=== PATIENT | female | born 1960 | race Caucasian/White ===

== ENCOUNTER 2023-08-13 08:29 | Outpatient (CLI) | payer MEDICARE, SELFPAY ==
--- NOTE | 2023-08-13 08:46 | ECHO_ITS ---
Patient Info Name: Lacey Joyner Age: 63 years : 1960 Gender: Female Ht: 66 in Wt: 223 lbs BSA: 2.21 m2 HR: 63 bpm BP: 137 / 91 mmHg Technical Quality: Fair Exam Date: 08/13/2023 9:11 AM Exam Location: Echo Lab Patient Status: Outpatient Admit Date: 08/13/2023 Staff Ordering Physician: Kasi Oconnell PA-C Attending Provider: Kasi Oconnell PA-C Referring Physician: Kourtney HECK; Exam Type: CA echo doppler color flow Study Info Indications R60.9 - Edema, unspecified Complete two-dimensional, color flow and Doppler transthoracic echocardiogram is performed. Summary 1. Complete two-dimensional, color flow and Doppler transthoracic echocardiogram is performed. 2. Left ventricular chamber dimension is normal. 3. Left ventricular systolic function is normal, estimated at 60-65%. 4. The left ventricular diastolic function is abnormal. 5. E/e' 11 is mildly elevated. 6. Left atrial chamber dimension is mildly enlarged. 7. There is trace mitral valve regurgitation. Left Ventricle E/e' 11 is mildly elevated. Left ventricular chamber dimension is normal. Left ventricular systolic function is normal, estimated at 60-65%. The left ventricular diastolic function is abnormal. Right Ventricle Right ventricular systolic function is normal and with normal TAPSE 2.2 cm. Right ventricular chamber dimension is normal. Left Atria Left atrial chamber dimension is mildly enlarged. Right Atria Right atrial chamber dimension is normal. Aortic Valve The aortic valve is probable trileaflet. There is no aortic valve stenosis. There is no aortic valve regurgitation. Pulmonic Valve There is no pulmonic regurgitation. Mitral Valve There is no mitral valve stenosis. There is trace mitral valve regurgitation. Tricuspid Valve There is no tricuspid valve regurgitation. Pericardium/Pleural There is no pericardial effusion. Inferior Vena Cava Normal inferior vena cava with >50% collapse upon inspiration consistent with normal right atrial pressure, 5 mmHg. Aorta The aortic root size at the sinus of Valsalva is normal. Left Ventricular Outflow Tract Name Value Normal LVOT 2D LVOT Diameter 2.0 cm LVOT Doppler LVOT Peak Gradient 5 mmHg LVOT Mean Gradient 2 mmHg LVOT VTI 23 cm LVOT VTI/AV VTI Ratio 0.6 LVOT Stroke Volume 71 ml LVOT CO 4.7 l/min LVOT CI 2.1 l/min/m2 Pulmonic Valve Name Value Normal PV Doppler PV Peak Gradient 3 mmHg Mitral Valve Name Value Normal MV Doppler
== END 2023-08-13 08:30 | disposition home or self-care (01) ==
PROVIDERS: PCP Physician Assistant; Visit Provider Physician Assistant
DX: R93.1 Abnormal findings on diagnostic imaging of heart and coronary circulation (principal); I34.0 Nonrheumatic mitral (valve) insufficiency; R60.9 Edema, unspecified
CPT/HCPCS: 93306

== ENCOUNTER 2024-10-07 09:41 | Outpatient (CLI) | payer MEDICARE, SELFPAY ==
--- NOTE | ~2024-10-07 | US_ITS ---
EXAMINATION: US_VDOPREFBI_US DATE: 10/07/2024 10:54 INDICATION: Venous insufficiency, chronic, peripheral. TECHNIQUE: Grayscale ultrasound images without and with compression and Doppler ultrasound images of the bilateral lower extremity veins were obtained. COMPARISON: None. FINDINGS: The visualized portions of right common femoral vein, profunda (deep) femoral vein, femoral vein, pop liteal vein, peroneal veins, and posterior tibial veins are patent. Greater saphenous vein measures 3 mm in the upper thigh and 4 mm in the lower thigh and 2 mm in the calf. In greater saphenous vein in the calf, there is 3.7 seconds reflux. Right small saphenous vein measures 3 mm in the upper calf an d 1 mm in the lower calf. The visualized portions of left common femoral vein, profunda femoral vein, femoral vein, popliteal v ein, peroneal veins, and posterior tibial veins are patent. Left greater saphenous vein measures 5 mm in the upper thigh, 2 mm in the lower thigh, and 1 mm in the calf. Left small saphenous vein measure s 2 mm in the upper calf and 2 mm in the lower calf. IMPRESSION: 1. Reflux in right greater saphenous vein. Reviewed, dictated and finalized at location A.
--- OUTSIDE RECORDS SUMMARY | 2024-10-07 10:22 | XMS_ITS | Clinical Summary ---
Author Organization [facility] Address [address] [place] [address] Care Team Providers Care Station Mechanic Apprentice Name Role Phone Vinnie Denson MD Primary Care Provider [phone] Allergies No known active allergies Medications atorvastatin (LIPITOR) 20 mg tablet TK 1 T PO QD 3 01/14/2019 Active lisinopril-hydro CHLOROthiazide (PRINZIDE,ZESTOR ETIC) 10-12.5 mg per tablet TK 1 T PO QD 3 12/24/2018 Activ e acetaminophen (TYLENOL ARTHRITIS ORAL) Take by mouth Active docusate sodium (STOOL SOFTENER ORAL) Take by mouth Active multivitamin capsule Take 1 capsule by mouth daily Active cholecalciferol, vitamin D3, (VITAMIN D3 ORAL) Take by mouth Active aspirin 81 mg enteric coated tablet Take 81 mg by mouth daily Active indomethacin (INDOCIN) 50 mg capsuleIndicatio ns:Acute gout of hand, unspecified cause, unspecified laterality Take 1 capsule (50 mg total) by mouth 3 (three) times a day with meals 30 capsule 06/24/2024 Active Active Problems Problem Noted Date Diagnosed Date Age-related nuclear cataract of both eyes 2021 Menopause 02/02/2019 Encounter for gynecological examination without abnormal finding 02/02/2019 Medical History Medical History Date Comments Hypertension Hypercholesteremia Family History Medical History Relation Name Comments Melanoma Brother Strabismus Brother Lung cancer Father Bone cancer Mother Breast cancer Sister Rectal cancer Sister Cataracts Neg Hx Glaucoma Neg Hx Macular degeneration Neg Hx Retinal detachment Neg Hx Relation Name Status Comments Brother Father Mother Sister Alive (1) Sister dx l ate 40's (2) dx early 60's Social History Tobacco Use Types Packs/Day Years Used Date Smoking Tobacco: Former Smokeless Tobacco: Current Alcohol Use Standard Drinks/Week Comments Yes 0 (1 standard drink = 0.6 oz pur e alcohol) Comments No Sex and Gender Information Value Date Recorded Sex Assigned at Not on file Legal Sex Female 7:24 AM LEAK HUNTER Gender Identity Not on file Sexual Orientation Not on file Obstetrics History Para Term AB IAB SAB Ectopic Multiple Livin g Live Births 0 0 Last Filed Vital Signs Vital Sign Reading Time Taken Comments Blood Pressure 136/78 07/14/2019 2:29 PM LEAK HUNTER Pulse 79 07/14/2019 2:29 PM LEAK HUNTER Temperature 36.6 C (97.9 F) 07/14/2019 2:29 PM LEAK HUNTER Respiratory Rate - - Oxygen Saturation 96% 07/14/2019 2:29 PM LEAK HUNTER Inhaled Oxygen Concentration - - Weight 88.5 kg (195 lb) 12/07/2019 9:43 AM CDT Height 167.6 cm (5' 6 ) 12/07/2019 9:43 AM CDT Body Mass Index 31.47 12/07/2019 9:43 AM CDT Plan of Treatment Health Maintenance Due Date Last Done Comments Colon Cancer Screening-Colonoscopy 1960 Depression Screening 1960 Fall Risk Assessment 1960 Hepatitis C Screening 1960 DTaP/Tdap/Td Vaccine (1 - Tdap) 1970 Hepatitis B Screening 1977 Zoster Vaccine (1 of 2) 2009 Pneumococcal vaccine 65+ (2 of 2 - PCV) 04/04/2019 04/04/2018 Cervical Cancer Screening 02/03/2020 02/02/2019 Osteoporosis Screening-Bone Density Scan 02/04/2021 02/04/2019 Influenza Vaccine (#1) 2024 8, 03/22/2017, 04/06/2016, Additional history exists Well Visit 65+ 2024 02/02/2019 Breast Cancer Screening-Mammogram 04/07/2025 04/07/2024, 01/21/2023, 06/11/2021, Additional history exists Procedures Procedure Name Priority Date/Time Associated Diagnosis Comments SCREENING MAMMOGRAM BILATERAL W HIRA Schedule Routine, Read Routine (OP Routine) 04/07/2024 11:41 AM CDT Screening mammogram, encounter for DEXA AXIAL SKELETON BONE DENSITY 1 OR MORE SITES 02/04/2019 2:01 PM CDT THINPREP PAP WITH HPV Routine 02/02/2019 3:45 PM CDT Encounter for gynecological examination without abnormal finding Menopause from Last 3 Months or Most Recently Relevant to Health Maintenance Results * Screening Mammogram Bilateral W Hira (04/07/2024 11:41 AM CDT) Anatomical Region Laterality Modality Breast Bilateral Mammography Impressions 04/07/2024 12:17 PM CDT BI-RADS ATLAS category (overall): 1 - Negative There is no mammographic evidence of malignancy. A 1 year screening mammogram is recommended. The patient has been or will be contacted. We recommend annual screening mammography for women at average risk of breast cancer beginning at age 40, based on guidelines of the [place] [employer] (ACR Practice Parameter for the Performance of Screening and Diagnostic Mammography) and [place] [employer]. For women with and elevated risk of breast cancer, please refer to the ACR Practice Parameter for specific screening recommendations. The patient will be entered into a reminder system with a target due date of 1 year for her next screening exam. Narrative 04/07/2024 12:17 PM CDT Screening Mammogram Bilateral W Hira: 04/07/24 The study was acquired using full field digital technology and interpreted from soft copy. 2D digital mammographic views, as well as 3D digital tomosynthesis were performed in the CC and MLO projections. CLINICAL: Screening mammogram, encounter for No relevant medical history has been documented for this patient. History of breast cancer in Sister. COMPARISONS: 01/21/2023 Screening Mammogram Bilateral W Hira 06/11/2021 Screening Mammogram Bilateral W Hira 03/01/2018 Screening Mammogram Bilateral W Hira 02/23/2017 MAMMOGRAPHY, TOMOGRAPHY, BILATERAL 04/04/2016 Screening Mammogram 01/01/2015 Screening Mammogram 2D Bilateral BREAST TISSUE: There are scattered areas of fibroglandular density. FINDINGS: There is no new suspicious finding in either breast on mammogram. us Self Screening Mammogram IMG MAMMO PROCEDURES Fi nal Result * Dexa Axial Skeleton Bone Density 1 or 2 Site (02/04/2019 2:01 PM CDT) Anatomical Region Laterality Modality Body N/A Radiographic Colette ging 02/04/2019 2:55 PM CDT Narrative 02/04/2019 2:56 PM CDT Patient Name: LACEY JOYNER Ordering Dr: Anupama Dietrich CNM D.O.B: 1960 Exam Date: 02/04/19 140 Age: 58 Sex: Female MR#: [id number] Loc: [facility]#: [id number] RADIOLOGY REPORT Order #[id number] Bone Density Bone Density Hip/Spine (STD) Signed EXAM DESCRIPTION: Bone Density Hip/Spine (STD) REASON FOR STUDY: 58-year-old post-menopausal female, screening for osteoporosis. Ship/Rec/Doc Control/Model: HoloRocketrip Horizon A (S/N [id number]) CLINICAL INFORMATION: Current height: 66 inches Maximum height: 66 inches Weight: 215 pounds Risk factors: None COMPARISON: None available. FINDINGS: AP LUMBAR SPINE L1-L4: Total BMD is 1.104 g/cm2 T-score is 0.5 LEFT HIP: Total BMD is 0.993 g/cm2 T-score is 0.4 Femoral neck BMD is 0.770 g/cm2 T-score is -0.7 IMPRESSION: Normal bone mineral density by WHO criteria. Bone mineral density: Normal (T-score above or = -1.0) Low bone mass (T-score between -1.0 and -2.5) replaces the previously used term osteopenia Osteoporosis (T-score = or below -2.5) Medical evaluation for secondary causes of low bone mineral density may be appropriate. FRAX is a World Health Organization validated fracture risk assessment tool that calculates a person's 10 year probability of a major osteoporosis related fracture and hip fracture. According to the National Osteoporosis Foundation guidelines, postmenopausal women and men age 50 or older with low bone mass and a 10 year probability of a major osteoporosis related fracture = or greater than 20% or a 10 year probability of a hip fracture = or greater than 3% should be considered for treatment. For further information, including treatment recommendations, please refer to the 2013 ISCD Official Positions (http://www.iscd.org) and the NOF's Clinician's Guide to Prevention and Treatment of Osteoporosis (http://www.nof.org/professionals/clinical-guidelines) THIS IS AN ELECTRONICALLY VERIFIED FINAL REPORT 02/04/2019 2:56 PM - Electronically signed by Qasim Collins M.D. AB: Report ID: [id number] Reading Location: [place] [address] REPORT ELECTRONICALLY SIGNED IN OTHER VENDOR SYSTEM Resulting Agency Comment O Procedure Note Qasim Collins MD - 02/04/2019 Patient Name: ANGELLALACEY Dr: Anupama Dietrich CNM D.O.B: 1960 Exam Date: 02/04/19 1401 Age: 58 Sex: Female MR#: [id number] Loc: RADIOLOGY REPORT Order #[id number] Bone Density Bone Density Hip/Spine (STD) Signed EXAM DESCRIPTION: Bone Density Hip/Spine (STD) REASON FOR STUDY: 58-year-old post-menopausal female, screening for osteoporosis. Ship/Rec/Doc Control/Model: HoloRocketrip Horizon A (S/N [id number]) CLINICAL INFORMATION: Current height: 66 inches Maximum height: 66 inches Weight: 215 pounds Risk factors: None COMPARISON: None available. FINDINGS: AP LUMBAR SPINE L1-L4: Total BMD is 1.104 g/cm2 T-score is 0.5 LEFT HIP: Total BMD is 0.993 g/cm2 T-score is 0.4 Femoral neck BMD is 0.770 g/cm2 T-score is -0.7 IMPRESSION: Normal bone mineral density by WHO criteria. Bone mineral density: Normal (T-score above or = -1.0) Low bone mass (T-score between -1.0 and -2.5) replaces thepreviously used term osteopenia Osteoporosis (T-score = or below -2.5) Medical evaluation for secondary causes of low bone mineral density maybe appropriate. FRAX is a World Health Organization validated fracture risk assessmenttool that calculates a person's 10 year probability of a major osteoporosisrelated fracture and hip fracture. According to the National OsteoporosisFoundation guidelines, postmenopausal women and men age 50 or older with low bonemass and a 10 year probability of a major osteoporosis related fracture = or greater than 20% or a 10 year probability of a hip fracture = or greaterthan 3% should be considered for treatment. For further information, including treatment recommendations, pleaserefer to the 2013 ISCD Official Positions (http://www.iscd.org) and the NOF's Clinician's Guide to Prevention and Treatment of Osteoporosis (http://www.nof.org/professionals/clinical-guidelines) THIS IS AN ELECTRONICALLY VERIFIED FINAL REPORT 02/04/2019 2:56 PM - Electronically signed by Qasim Collins M.D. AB: Report ID: [id number] Reading Location: [place] [address] REPORT ELECTRONICALLY SIGNED IN OTHER VENDOR SYSTEM Anupama Dietrich CN IM DXA PROCEDURES Joselyn l Result * ThinPrep Pap with HPV (02/02/2019 3:45 PM CDT) 02/02/2019 3:45 PM CDT 02/03/2019 11:35 AM CDT [facility] - 02/07/2019 11:19 AM CDT [facility] Department of Pathology [address] [place] [id number] Final Report with Addendum Patient Name: LACEY JOYNER Address: [address] [place] [address] Gender: F : 1960 (Age: 58) Service: Laboratory Location: Lab [facility] #: [id number] Patient Type: Ref Lab Taken: 02/02/2019 Received: 02/03/2019 Accessioned:: 02/04/2019 Reported: 02/07/2019 Physician(s): Anupama Dietrich [facility] Diagnosis: Source of Specimen: SCREENING IMAGED PAP w/ HPV Specimen Adequacy: - Satisfactory for evaluation; endocervical/transformation zone component present General Category: - Negative for intraepithelial lesion or malignancy RAIZA Prater(ASCP) Report Electronically Reviewed and Signed Out By RAIZA Prater(ASCP) 02/07/2019 11:19:52 Addenda: HPV RNA Test Interpretation NEGATIVE for types 16, 18, 31, 33, 35, 39, 45, 51, 52, 56, 58, 59, 66 and 68. Test performed utilizing Gen-Mingleverse Aptima assay. RAIZA Prater(ASCP) Report Electronically Reviewed and Signed Out By RAIZA Prater(ASC) 02/07/2019 10:02:02 Specimen(s) Received: A: SCREENING IMAGED PAP w/ HPV Clinical History: Menstrual History: Post-menopausal The Pap test is a screening test used to aid in the detection of cervical cancer and its precursors. It should not be the sole means by which malignant and premalignant lesions are diagnosed. Both false negative and false positive results may occur. It also has poor sensitivity for the detection of endometrial lesions and should not be used to evaluate suspected endometrial abnormalities. For these reasons it is most important to obtain Pap tests at regular intervals. The performance characteristics of some immunohistochemical stains, fluorescence in-situ hybridization tests and immunophenotyping by flow cytometry cited in this report (if any) were determined by the Surgical Pathology Department at [facility] as part of an ongoing quality measurement specialist program and in compliance with federally mandated regulations drawn from the Clinical Laboratory Improvement Act of 1988 (CLIA '88). Some of these tests rely on the use of analyte specific reagents and are subject to specific labeling requirements by the US Food and Drug Administration. Such diagnostic tests may only be performed in a facility that is certified by the Department of Health and Human Services as a high complexity laboratory under CLIA '88. The FDA has determined that such clearance or approval is not necessary. This test is used for clinical purposes. It should not be regarded as investigational or for research. Nevertheless, federal rules concerning the medical use of analyte specific reagents require that the following disclaimer be attached to the report: This test was developed and [facility] performance characteristics [facility]. It has not been cleared or approved by the U. S. Food and Drug Administration. Anupama Dietrich CN LAB CYTOLOGY [place] [address], [facility] [phone] from Last 3 Months or Most Recently Relevant to Health Maintenance Insurance MEDICARE [facility] Address: [address] [address] [place] [address] COMMERCIAL GENERIC MEDICARE COMMERCIAL GENERIC [id number] MEDICARE COMMERCIAL GENERIC [place] [id number] [facility] Care Teams Station Mechanic Apprentice Relationship Specialty Start Date End Date Vinnie Denson MD [address] [facility] [address] [place] [address] PCP - General 02/20/20
--- OUTSIDE RECORDS SUMMARY | 2024-10-07 10:22 | XMS_ITS | Clinical Summary ---
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 Gender Identity Not on file Sexual Orientation Not on file Plan of Treatment Health Maintenance Due Date Last Done Comments DEXA Bone Density 1960 Hepatitis C Virus (HCV) Screening 1960 TdaP Immunization 1960 Pap Smear 1980 Cervical Cancer Screening (CCS) 1989 HPV/Cotest 1989 Colonoscopy 2004 Colorectal Cancer Screening 2004 Cologuard 2009 Immunochemical Fecal Occult Blood 2009 Mammogram 2009 Pneumococcal Immunization (50+ years) (2 of 2 - PCV) 04/04/2019 04/04/2018 Influenza Immunization (#1) 03/13/202402/12, 04/04/2018, 03/22/2017, Additional history exists SARS-COV-2 Immunization ( season) 2024 06/20/2021, 10/26/2020, 09/14/2020 Respiratory Syncytial Virus (RSV) Immunization (Adult) (1 - 1-dose 75+ series) 2034 Pneumococcal Immunization Combined Discontinued 04/04/2018 Zoster Immunization Completed 05/16/2020, 0 Hepatitis B Immunization Aged Out No longer eligible based on patient's age to complete this topic Meningococcal Immunization (ACWY) Aged Out No longer eligible based on patient's age to complete this topic Rotavirus Immunization Aged Out No lo nger eligible based on patient's age to complete this topic
--- OUTSIDE RECORDS SUMMARY | 2024-10-07 10:22 | XMS_ITS | Clinical Summary ---
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 Name Role Phone Unavailable Primary Care Provider Unavailabl e Social History Tobacco Use Types Packs/Day Years Used Date Smoking Tobacco: Never Assessed Comments Unknown Sex and Gender Information Value Date Recorded Sex Assigned at Not on file Legal Sex Female 7:18 PM CDT Gender Identity Not on file Sexual Orientation Not on file Plan of Treatment Health Maintenance Due Date Last Done Comments Colorectal Cancer Screening Colonoscopy (10 Years) 1959 Hepatitis C 1977 DTaP, Tdap and Td Vaccines ( 1 - Tdap) 1978 Mammogram Screening 1999 Zoster Vaccines (1 of 2) 2009 COVID-19 Vaccine ( - 2023-2 5 season) 2024 Dexa Scan (General) 2024 Pneumococcal Vaccine: 65+ Ye ars (1 of 1 - PCV) 2024 Influenza Adult (#1) 2024 RSV Immunization or 60+ Years (1 - 1-dose 75+ series) 2034 Meningococcal B Vaccine Aged Out No l onger eligible based on patient's age to complete this topic Meningococcal Vaccine Aged Out No kristie sharon eligible based on patient's age to complete this topic Pneumococcal Vaccine: Pediat rics (0 to 5 Years) and At-Risk Patients (6 to 64 Years) Aged Out No longer eligible b ased on patient's age to complete this topic RSV Immunizations Under 20 Months Aged Out No longer eligible based on patient's age to complete this topic
--- OUTSIDE RECORDS SUMMARY | 2024-10-07 10:22 | XMS_ITS | Clinical Summary ---
Author Organization [facility] Address [address] [address] Care Team Providers Care Record Pressman Name Role Phone Unavailable Primary Care Provider Unavailabl e Source Comments [facility],non-owned Affiliates and Associated Physician Practices is amultiple site organization consisting of ambulatory clinics and hospital sitesin [place], [place], [place] and [place]. This disclosure is being madepursuant to the Care Everywhere program and may not contain all information available regarding this patient. Last updated 18.[facility] [employer] Social History Tobacco Use Types Packs/Day Years Used Date Smoking Tobacco: Never Assessed Sex and Gender Information Value Date Recorded Sex Assigned at Not on file Gender Identity Not on file Sexual Orientation Not on file Plan of Treatment Health Maintenance Due Date Last Done Comments BONE DENSITY TESTING 1960 COLOGUARD (AGES 45-75) - COL ON CA SCREENING 1960 COLON MONITORING 1960 COLONOSCOPY - COLON CA SCREENING 1959 CT COLONOGRAPHY - COLON CA SCREENING 1960 Colorectal Cancer Screening 1960 FIT - COLON CA SCREENING 1960 FLEX SIG - COLON CA SCREENING 1960 LIPID TESTING 1960 MAMMOGRAM 1960 MEDICARE AWV 12 MONTHS 1960 PAP SMEAR 1959 HIV SCREENING 1974 HEPATITIS C SCREENING 03/25/1977 DTAP/TDAP/TD VACCINES (1 - Tdap) 1978 PNEUMOCOCCAL VACCINE 50+ (1 of 1 - PCV) 2009 ZOSTER VACCINE (1 of 2) 2009 COVID-19 VACCINE ( - 2023-2 5 season) 2024 INFLUENZA VACCINE (#1) 2024 DEPRESSION SCREENING 07/13/2024 Respiratory Syncytial Virus (RSV) Vaccine Pt: or over 60 yrs (1 - 1-dose 75+ series) 2034 HEPATITIS B VACCINE Aged Out No longe r eligible based on patient's age to complete this topic HIB VACCINE Aged Out No longer eligi ble based on patient's age to complete this topic HPV VACCINE Aged Out No longer eligi ble based on patient's age to complete this topic MENINGOCOCCAL (Group B) VACC INE SHARED DECISION-MAKING Aged Out No longer eligibl e based on patient's age to complete this topic MENINGOCOCCAL GROUPS A/C/Y/W VACCINE Aged Out No longer eligible b ased on patient's age to complete this topic
--- OUTSIDE RECORDS SUMMARY | 2024-10-07 10:22 | XMS_ITS | Encounter Summary ---
Author Organization [facility] Address [address] [place], [place] [address] [address] Care Team Providers Care Supervisor Lead [employer]inery Name Role Phone Unavailable Primary Care Provider Unavailabl e Encounter Details Date Type Department Care Team (Late st Contact Info) Description 05/01/2022 Lab Requisition [facility] [address] [place] [id number] Savage Chen MD [address] [place] [address] Social History Tobacco Use Types Packs/Day Years Used Date Smoking Tobacco: Never Assessed Sex and Gender Information Value Date Recorded Sex Assigned at Not on file Gender Identity Not on file Sexual Orientation Not on file documented as of this encounter Plan of Treatment Not on file documented as of this encounter Procedures Procedure Name Priority Date/Time Associated Diagnosis Comments DERMATOPATHOLOGY Routine 05/01/2022 12:0 0 AM CDT documented in this encounter Results * DERMATOPATHOLOGY (05/01/2022 12:00 AM CDT) Case Report Dermatopathology Report Case: [id number] Authorizing Provider: Savage Chen MD Collected: 05/01/2022 12:00 AM Ordering Location: [facility] Received: 05/01/2022 05:37 PM Pathologist: Nancy Ryan MD Specimen: Skin, left breast 12:50 PM CDT DERMATOPATHOLOGY LABORATORY Final Diagnosis Specimen A. 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 The specimen consists of a shave biopsy measuring [id number]. Jar 0. 12:50 PM CDT DERMATOPATHOLOGY LABORATORY Microscopic Description Specimen A. SKIN, left breast: The epidermis is mildly acanthotic. There is a lichenoid infiltrate with vacuolar changes of basilar keratinocytes and scattered necrotic keratinocytes. Sections show acantholysis, dyskeratosis, and an inflammatory cell infiltrate. COMMENT: In the correct clinical setting the acantholytic dyskeratosis can be seen in transient acantholytic dermatosis (Ft Mitchell's disease). 12:50 PM CDT DERMATOPATHOLOGY LABORATORY Disclaimer An external and internal positive and negative controls are appropriate for the histochemical, immunohistochemical and immunofluorescence stain(s) in this case (if any), except where stated explicitly. The performance characteristics of the stain(s) cited in this report were developed and its performance characteristic determined by the Dermatopathology Laboratory at [facility], directed by Dr. Shania Tsang. These tests need not be, and therefore are not, approved by the [place] Food and Drug Administration. The tests are used for clinical purposes. Billing Codes Specimen Charges Stain Charges 29167 1 12:50 PM CDT DERMATOPATHOLOGY LABORATORY Embedded Images 12:50 PM CDT DERMATOPATHOLOGY LABORATORY Pathology/Cytolog y TISSUE SPECIMEN FROM SKIN / Unknown 05/01/2022 05/01/2022 5:37 PM CDT Savage Chen MD LAB - PATHOLOGY/CYTO LOGY ORDERABLES DERMATOPATHOLOGY LABORATORY [facility] - Department of Dermatology [address] [place] [address], [facility] [phone] documented in this encounter Visit Diagnoses Not on filedocumented in this encounter
--- OUTSIDE RECORDS SUMMARY | 2024-10-07 10:22 | XMS_ITS | Data Portability ---
Author Organization 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 Patient will come back in a year unless there are new symptoms. [email or web address] Not available 04/21/2024 12:24:14 Plan of Treatment Reminders Order Date Submit Date Provider Last Modified By Organization Details Last Modified Time Details Appointments None recorded . Lab urinalys is, dipstick 2021 022 [facility], [address], [address], [place], [address], 11:23:55 Referral urologis t referral - Overacti ve bladderP lease contact this patient to schedule an appointm entAttac hed are the patients demograp hics, most recent office visit notes and labs results. If you have any question s, please contact me at [phone].Th ank you,Min da, Referral 's 2021 022 NESTOR Collins MD, [address], [place], [address], 3 05:01:33 Procedures None recorded . Surgeries None recorded . Imaging None recorded . Medication Orders fluconaz ole 150 mg tablet 2023 024 NESTOR [facility] #[id number], [address], [place], [place], [id number], 4 15:41:54 Macrobid 100 mg capsule 2021 [email or web address] [facility] #[id number], [address], [place], [place], [id number], 10:43:56 Patient TargetsNo targets recorded. Patient InstructionsNo instructions recorded. Reason for Referral Urologist Referral for Overa ctive urinary bladder Overactive bladder Overactive bladderPlease contact this patient to schedule an appointmentAttached are the patients demographics, most recent office visit notes and labs results.If you have any questions, please contact me at [phone].Thank you,Zari Referral's Referring Physician: Ana Maria Ding TAIL DOGGER, Encounter Date: 02/19/2022 Results Created Date Observation Date Name Description Value Unit Range Abnormal Flag Note LastModifiedBy Organization Detail LastModifiedTime 02/12/2002/11/2022 CULTU RE: URINE result report SEE RESULT S BELOW Test: Cultu re: Urine Speci men Sourc e: Urine Voide d Speci men Type: Urine Speci men Date: 11:20 AM Resul t Date: 8:56 PM Resul t Statu s: Final resul t Abnor mal: No Resul ting Lab: [facility] [address] [facility] [address] Tel: CULTU RE ----- ----- ----- --- No growt h in 1 day (dete ction level of 10,00 0 colon ies / ml.) Not Available [facility] [address] [place], [address], 02/12/2022 21:59:13 02/12/20 22 02/11/2022 urina lysis , dipst ick Leukocytes tr Not Available [facility] [address], [place], [address], 02/11/2022 11:16:42 02/12/20 22 02/11/2022 urina lysis , dipst ick Nitrite neg Not Available [facility] [address], [place], [address], 02/11/2022 11:16:42 02/12/20 22 02/11/2022 urina lysis , dipst ick Urobilinogen neg Not Available [facility] kat [address], [place], [address], 02/11/2022 11:16:42 02/12/20 22 02/11/2022 urina lysis , dipst ick Protein neg Not Available [facility] [address], [place], [address], 02/11/2022 11:16:42 02/12/20 22 02/11/2022 urina lysis , dipst ick pH 7 Not Available [facility] [address], [place], [address], 02/11/2022 11:16:42 02/12/20 22 02/11/2022 urina lysis , dipst ick Specific Browning 1.005 Not Available [facility] [address], [place], [address], 02/11/2022 11:16:42 02/12/20 22 02/11/2022 urina lysis , dipst ick Ketone neg Not Available [facility] [address], [place], [address], 02/11/2022 11:16:42 02/12/20 22 02/11/2022 urina lysis , dipst ick Bilirubin neg Not Available [facility] yasir [address], [place], [address], 02/11/2022 11:16:42 02/12/20 22 02/11/2022 urina lysis , dipst ick Glucose neg Not Available [facility] [address], [place], [address], 02/11/2022 11:16:42 02/12/20 22 02/11/2022 urina lysis , dipst ick Appearance clear Not Available [facility] venkat [address], [place], [address], 02/11/2022 11:16:42 02/12/20 22 02/11/2022 urina lysis , dipst ick Color yellow Not Available [facility] [address], [place], [address], 02/11/2022 11:16:42 02/20/20 22 02/19/2022 IMAGE GUIDE D PAP AND HPV REGAR DLESS image guided Pap, HPV regardless of Pap result SEE RESULT S BELOW CASE REPOR T: Cytol ogy Gynec ologi carlos Repor t Case: [id number] Autho riuma g Provi sanjay: Ana Maria Ding, BERNY Colle cted: 02/19 1157 Order ing Locat ion: [place] [facility] Recei becca: 02/20 0108 First Scree n: Heber shelley, Dante ramírez, CT Speci men: Scree liz Pap - Image d, Cervi x STATE MENT OF ADEQU ACY: Satis facto ry for evalu ation Trans forma tion zone compo nent prese nt FINAL DIAGN OSIS: Negat cristopher for Intra epith elial Lesio n or Laura irwin (NIL) . Elect emma saavedra jm d by Dante Baltazar, CT on 2021 at 1:46 PM ----- ----- ----- ----- ----- ----- ----- ----- ----- ----- ----- ----- ----- ----- ----- ----- ----- ---- HPV RESUL TS: HPV mRNA E6/E7 : No HPV mRNA Detec andrés NOTE: This high risk HPV mRNA assay detec ts fourt een high- risk HPV types (16, 18, 31, 33, 35, 39, 45, 51, 52, 56, 58, 59, 66, 68) witho ut diffe renti ation . COMME NT: Note: This speci men was revie wed by a Cytot echno logis t and/o r Patho logis t (as indic ated in this repor t) after evalu ation using the Thinp rep Imagi ng Syste m. CLINI CARLOS INFOR MATIO N: Menst rual Statu s: LMP (if appli cable ): Clini carlos Histo ry/Pr eviou s Pap: Type of Neopl melvina (if appli cable ): Signi fican t Clini carlos Findi ngs: Other Histo ry: Hormo lyndsey (if appli cable ): PAP EDUCA JANEY L NOTE: The Pap Test is a scree liz test with an inher ent false negat cristopher rate. Liqui d-bas ed sampl ing may decre ase, but will not elimi ruth, false negat cristopher resul ts. A negat cristopher resul t does not precl ude the prese nce and/o r devel opmen t of disea se, since the prese nce of abnor mal cells in the sampl e depen ds on the locat ion of the lesio n and sampl ing techn ique. Chen nued regul ar scree liz is the best metho d of cance r preve ntion . If repor andrés cytol ogic findi ng do not corre late with physi carlos and/o r histo rical findi ngs, furth er inves tigat ion is recom jos d, as clinnubia guerra nted. Not Available [facility] [address] [place], [address], 02/24/2022 14:49:12 Result Notes None recorded. Problems Name Problem SNOMED Code Status Onset Date Resolution Date Notes Provider Name and Address Organization Details Recorded Time Adult health examinati on Active 2014 ROUTINE MEDICAL EXAM;Recor ded Elsewhere: No Locatio n: [facility] rce: EHR Chroni c: N Practice ID: 0001 Billa ble Time: 10:30:00 AM Not Available [facility] 0 16:02:55 Specializ ed medical examinati on Active 2014 Gynecologi carlos Examinatio n;Recorded Elsewhere: No Locatio n: [facility] rce: EHR Chroni c: N Practice ID: 0001 Billa ble Time: 10:30:00 AM Not Available [facility] 0 16:02:55 Menopausa l symptom 67886171 Active 2013 Menopausal or female climacteri c states;Rec orded Elsewhere: No Locatio n: [facility] rce: EHR Chroni c: N Practice ID: 0001 Billa ble Time: 01:00:00 PM Not Available [facility] 0 16:02:55 Screening for malignant neoplasm of cervix Active 2013 Screening for malignant neoplasms of the cervix;Rec orded Elsewhere: No Locatio n: [facility] rce: EHR Chroni c: N Practice ID: 0001 Billa ble Time: 01:00:00 PM Not Available [facility] 0 16:02:55 Screening for malignant neoplasm of rectum Active 2013 Screening for malignant neoplasms of the rectum;Rec orded Elsewhere: No Locatio n: [facility] rce: EHR Chroni c: N Practice ID: 0001 Billa ble Time: 01:00:00 PM Not Available [facility] 0 16:02:55 Female genital organ symptoms 823161771 Active 2010 Unspecifie d symptom associated with female genital organs;Pra ctice ID: 0001 Not Available [facility] 0 16:02:55 Breast lump 96134632 Active 2010 Lump or mass in breast;Pra ctice ID: 0001 Not Available [facility] 0 16:02:55 Cyst of ovary 89450477 Active 2010 OVARIAN CYST;Pract ice ID: 0001 Not Available [facility] 0 16:02:55 Problem Notes None recorded. Procedures Surgical History Date Name Laterality Status Provider Name and Address Organization Details Recorded Time 05/06/2024 Date of Last Pap Smear completed Deanna Mendoza [facility] 05/17/2024 15:54:36 Imaging Results None recorded. Procedure Notes None recorded. Medical Equipment None Reported. Allergies No known drug allergies Medications Name Sig Start Date Stop Date Status Note LastModified by Organization Details LastModified Time doxycycli ne hyclate 100 mg capsule TAKE 1 CAPSULE BY MOUTH EVERY 12 HOURS FOR 10 DAYS 02/11 completed Not Available Not Available Not Available atorvasta tin 20 mg tablet TAKE 1 TABLET BY MOUTH DAILY active Not Available Not Available No t Available trazodone 50 mg tablet TAKE 1 TABLET BY MOUTH EVERY DAY AT BEDTIME active Not Available Not Available No t Available nystatin 100,000 unit/gram topical ointment APPLY TO THE AFFECTED AREA(S) BY TOPICAL ROUTE 2 TIMES PER DAY active Not Available Not Available No t Available fluconazo le 150 mg tablet TAKE 1 TABLET BY MOUTH ONCE active Not Available Not Available No t Available minocycli ne 100 mg capsule TAKE 1 CAPSULE BY MOUTH TWICE DAILY FOR 14 DAYS 05/06 completed Not Available Not Available Not Available betametha sone, augmented 0.05 % topical cream APPLY TOPICALL Y TO THE AFFECTED AREA TWICE DAILY UNTIL GONE. RUB IN WELL 02/11 completed Not Available Not Available Not Available ofloxacin 0.3 % ear drops APPLY 2 DROPS IN AFFECTED EAR(S) FOUR TIMES DAILY FOR 5 DAYS 05/06 completed Not Available Not Available Not Available alprazola m 0.25 mg tablet TAKE 1 TABLET BY MOUTH DAILY NEEDED FOR ANXIETY active Not Available Not Available No t Available benzonata te 100 mg capsule TAKE 1 CAPSULE BY MOUTH EVERY 8 HOURS NEEDED FOR COUGH 02/11 completed Not Available Not Available Not Available triamcino lone acetonide 0.1 % topical ointment APPLY THIN LAYER TOPICALL Y TO THE AFFECTED AREA TWICE DAILY active Not Available Not Available No t Available Neurontin 100 mg capsule take 3 capsule (300MG) by oral route 3 times every day 01/15 completed Prescrib ed Elsewher e: No Locat ion: [facility] odify By: cmedical Encount er DateTime : 11/01/19 14 01:00:00 PM Not Available Not Available Not Available nystatin- triamcino lone 100,000 unit/g-0. 1 % topical cream APPLY TO THE AFFECTED AREA TWICE DAILY(IN THE MORNING AND EVENING) FOR 2 WEEKS, THEN EVERY OTHER DAY FOR 2 WEEKS active Not Available Not Available No t Available mupirocin 2 % topical ointment APPLY TOPICALL Y TO THE AFFECTED AREA TWICE DAILY active Not Available Not Available No t Available lisinopri l 10 mg-hydroc hlorothia zide 12.5 mg tablet TAKE 1 TABLET BY MOUTH DAILY active Not Available Not Available No t Available ketoconaz ole 2 % topical cream APPLY TOPICALL Y TO THE AFFECTED AREA TWICE DAILY. RUB IN WELL active Not Available Not Available No t Available cefdinir 300 mg capsule TAKE 1 CAPSULE BY MOUTH EVERY 12 HOURS active Not Available Not Available No t Available lisinopri l 2.5 mg tablet take 1 tablet by oral route every day 02/11 completed Prescrib ed Elsewher e: Yes Loca tion: [facility] odify By: [email or web address] trick En counter DateTime : 11/01/19 14 01:00:00 PM Not Available Not Available Not Available nitrofura ntoin monohydra te/macroc rystals 100 mg capsule TAKE 1 CAPSULE BY MOUTH EVERY 12 HOURS FOR 5 DAYS 02/19 completed Not Available Not Available Not Available Contrave 8 mg-90 mg tablet,ex tended release TAKE 1 TABLET BY MOUTH DAILY active Not Available Not Available No t Available ID NOW COVID-19 Test Kit TEST DIRECTED 02/11 completed Not Available Not Available Not Available Paxlovid 300 mg (150 mg x 2)-100 mg tablets in a dose pack TK 2 NIRMATRE LVIR TS AND 1 RITONAVI R T TOGETHER PO TWICE DAILY active Not Available Not Available No t Available Vitals Date Recorded Body height Body mass index (BMI) Body weight Systolic blood pressure Diastolic blood pressure Provider Name and Address Organization Details Last Updated DateTime 02/11/2022 167.64 cm 36 kg/m2 877736.8 2 g 134 mm[Hg] 81 mm[Hg] Pita Sanchez [place] - [facility] 2 11:07:04 Date Recorded Body height Body mass index (BMI) Body weight Systolic blood pressure Diastolic blood pressure Provider Name and Address Organization Details Last Updated DateTime 02/19/2022 167.64 cm 35.7 kg/m2 501646.6 3 g 128 mm[Hg] 82 mm[Hg] Pita Daniel [facility] 2 10:43:50 Date Recorded Body height Body mass index (BMI) Body weight Systolic blood pressure Diastolic blood pressure Provider Name and Address Organization Details Last Updated DateTime 05/06/2024 167.64 cm 35.7 kg/m2 474794.9 1 g 127 mm[Hg] 81 mm[Hg] Deanna Reji [facility] 4 15:10:00 Social History Question Answer Notes LastModified by [employer] ion Details LastModified Time Tobacco Smoking Status Never Smoker Pita Daniel [facility] 02/11/2022 11:09:28 What Is Your Level Of Alcohol Consumption? Occasional Information not available 02/11/2022 Are You Blind Or Do You Have Difficulty Seeing? No Information n ot available 02/11/2022 In The 14 Days Before Symptom Onset, Have You Had Close Contact With A Laboratory-confirm ed COVID-19 While That Case Was Ill? No [email or web address] Information n ot available 05/06/2024 In The 14 Days Before Symptom Onset, Have You Had Close Contact With A Person Who Is Under Investigation For COVID-19 While That Person Was Ill? No [email or web address] Information not available 05/06/2024 Have You Been To An Area Known To Be High Risk For COVID-19? No [email or web address] Information not available 05/06/2024 Are You Deaf Or Do You Have Serious Difficulty Hearing? No Information not available 02/11/2022 What Type Of Diet Are You Following? REGULAR Information n ot available 02/11/2022 Sex: Unknown Functional Status Question Answer Note LastModified by Organizat ion Details LastModified Time Do you have difficulty walking or climbing stairs? No Information not available 02/11/2022 Are you able to walk? YESWOREST Information not available 02/11/2022 Are you able to care for yourself? Yes Information not available 02/11/2022 Do you have difficulty dressing or bathing? No Information not available 02/11/2022 What is your exercise level? Occasional Information not available 02/11/2022 Mental Status None recorded. Family History Relationship Description Onset Age of this Age Resolved Age Notes LastModified by Organization Details LastModified Time Sister Malignant tumor of breast [email or web address] Not available 08/2021 11:08:46 Mother Malignant tumor of lung [email or web address] Not available 08/2021 11:08:58 Medical History Condition Response Other N Blood Transfusion N Dermatologic Disorders N Gestational Diabetes N Anxiety Disorder N Autoimmune disease N Arthritis N Polyps N Infertility N Acid Reflux (GERD) N Cancer N Varicosities N Stroke N Neurologic/Epilepsy N Fibromyalgia N Headaches N Kidney Disease N Heart Problems N Kidney or Bladder Problems N Eating Disorder N Art (IVF or FET) N Hepatitis/Liver Disease N No Past Medical History N Urinary Tract Infection N Asthma N Trauma/Violence N Thrombophilias N Allergies (Food, seasonal, environmental ) N Breast Cancer N Drug/Latex Allergies/Reactions N Lung Disease N Defects or Inherited Disease N Breast Problem N Hematologic disorders N Anesthesia Complications N History of STI N Deep Vein Thrombosis N Polycystic ovary syndrome N History of abnormal pap N Endometriosis N High Cholesterol Y Thyroid Problems N GI Problems N Anemia N Psychiatric Illness N Ovarian Cancer N Diabetes N Pulmonary (TB, Asthma) N Eczema N Abuse/Domestic Violence N Depression/ depression N Heart Disease N Pre-Eclampsia N Hypertension Y Osteoporosis N Gynecological History Statement/Question Response STIs/STDs N HPV Vaccine N Date of Last Pap Smear 05/06/2024 Sexual Problems? N Current Control Method Menopause LMP Unknown Sexually Active? Y Obstetrics History GPAL:G 0 P 0 0 0 0 Past Encounters Encounter ID Performer Location Encounter Start Date Encounter Closed Date Diagnosis/Indication Diagnosis SNOMED-CT Code Diagnosis ICD10 Code Diagnosis Note [id number] NAT uL [facility] [address] [address] 02/11/2022 10:36:18 02/11/2022 11:32:17 Increased frequency of urination 964573752 R35.0 Urinary symptoms 0106552 08 R39.9 UA today with only trace leuksGiven patients symptoms of burning with urination and frequency, patient opts to start UTI treatment now.Cultur e sentIncrea se water intake, avoid caffeine, sodas, carbonatio n, spicy foodsR/B of medication discussed and accepted. Patient states no allergiesR TC for WWE as she is due To call the office /ED visit with any worsening symptoms, flank pains, fevers, etc Time spent in visit is a total of 25 mins with at least 50% of visit consisting of counseling and review of plan of care. [id number] NAT Lu [facility] [address] [address] 02/19/2022 10:24:24 02/19/2022 12:03:06 Gynecologic examination 99708178 Z01.419 Take Calcium with Vitamin D 12-1500mg daily. Do monthly self breast exams. It is advised to get annual flu shot in the fall and she could obtain at [facility] or [facility] care clinic. If you haven't received the Tdap vaccine in the last 10 years you should obtain one as well. Have mammogram yearly, bone density every 2-3 years and colonoscop y every 5-10 years depending on findings and history. Engage in daily exercise of low impact aerobic exercise 45-60 minutes 4-5 times weekly. Avoid tobacco and illicit drugs as well as using moderation with alcohol intake less than 1-2 8 oz beverages daily. This lifestyle behavior pattern will lead to less health conditions and longer life span. If BMI greater than 25 weight watchers or dietary consult advised. Questions have been answered. Patient appears to understand instructio ns, but if you have any further questions call or respond to this email WWShelbie hx of abnormal paps per patientLas t pap 2016Pap done todaySexua lly active with monogamous partnerInc reased urinary frequency, declines incontinen ce issues - recently had a negative culture - no burning, pains, or irritation . She drinks 2 cups of coffee daily, diet coke, and tea. We discussed caffeine as a bladder stimulant and decreasing caffeine intake can help with urinary frequency. She is also on lisinopril with hydrochlor othiazide, we discussed this can cause urinary frequency as well.Her sees Dr. Collins, urology, for OAB. She request consult, referral sentTo use crisco twice daily to vulva for vaginal moisturize r, to use this as lubricatio n with intercours eSister with breast cancer, unknown genetic testing. We discussed genetic testing, she is unsure if she would like to proceed. Handout given to patient, she will consider.S he declined breast exam today, has anxiety when breast are touched by others. She checks her breast daily. Last mammogram in September.I offered patient breast specialist consult given family hx, declined at this timeUTD with Colonoscop yUTD with PCPRTC in 1 year for WWE or sooner if needed Overactive urinary bladder [id number] N32.81 Family his tory of breast cancer 644488377 Z80.3 [id number] SAY PABLO MD [facility] [address] [address] 05/06/2024 14:45:24 05/06/2024 15:45:07 Gynecologic examination 78906194 Z01.419 Well woman care- Cervical cancer screening: Pap smear obtained today, will follow up on the results with the patient as they become available- Breast cancer screening: mammogram completed- HPV immunizati on: does not qualify- STD testing: declined- hereditary cancer screening: does not qualify for testing Candidiasis of vagina 72 475459 B37.31 - red rash extending from vulva to rectum- will treat with diflucan- swab sent to r/o [facility] Health Concerns Section Related Observation LastModified by Organization Detai ls LastModified Time None Recorded Concern Status LastModified by Organization Details LastModified Time None Recorded Advance Directives Directive None Recorded Payers Encounter Date Sequence Insurance Name Policy Number Policy Stroud Covered Member ID Stroud Member ID Guarantor Name 02/11/2022 1 [place] Lacey Joyner [id number] Lacey Joyner 02/11/[address] [facility]UR[facility] Lacey Joyner [id number] Lacey Joyner 02/19/2022 1 [place] Lacey Joyner [id number] Lacey Joyner 02/19/2022 2 [facility] INSURANCE Lacey Joyner [id number] Lacey Joyner 05/06/2024 1 [place] Lacey Joyner [id number] Lacey Joyner 05/06/2024 2 [facility] - EPIC INSURANCE Lacey Joyner [id number] Lacey Joyner Notes Date Note Type Note Provider Name and Address Organization Details Recorded Time 02/11/2022 text/html G0 61yo presents with frequent urination and burning with urination x 2-3 daysNo flank pains, N/V or feversNo vaginal symptomsMedical hx : HTN, elevated cholesterol NAT Lu [address], [place], [address], [facility] 02/11/2022 11:30:58 02/19/2022 text/html Annual Skull Grinder Post-MenopausalRepor andrés bypatient.Menopausal Symptoms:no menopausal symptoms; normal vaginal lubrication Vaginal Bleeding:history of menopause having occurred; no history of post menopausal bleeding Urinary Symptoms:no hematuria; no incontinence; no nocturia; no urinary frequency Vulva:no genital lesion; no vulvar atrophy Vagina:normal vaginal discharge; no vaginal atrophy Breast:no breast lump; no nipple discharge; no breast pain Sexual Complaints:no sexual complaints Psychological Symptoms:no depression; no anxiety Preventive Measures:encourage regular mammograms starting age 40; encourage self breast examination; encourage regular exercise; encourage no tobacco use; mammogram performed within the past year; history of recent colonoscopy NAT Lu [address], [place], [address], [facility] 02/19/2022 11:54:42 05/06/2024 text/html Presents today f or her annual well-woman exam.Denies abnormal vaginal discharge. She is sexually active and denies dyspareunia. She has not noticed any changes or masses in her breasts. Up to date on mammograms, BIRADS 1 03/2024. Menopausal, no PMB. No hx of abnormal pap smears. Reports rash from vagina to rectum for the past 3-4 weeks. She also reports yellow discharge from her rectal area. She also reports some vaginal/groin pain with walking. SAY PABLO MD [address], [place], [address], [facility] 05/06/2024 15:42:32 OBGyn Episode No OBEpisode recorded.
--- OUTSIDE RECORDS SUMMARY | 2024-10-07 10:22 | XMS_ITS | Referral Summary ---
Author Organization [facility] Address [address] [place] [address] Care Team Providers Care Assembler Engine Name Role Phone Vinnie Denson MD Primary Care Provider [phone] Allergies No known active allergies Medications atorvastatin [...] for gynecological examination without abnormal finding 02/02/2019 Social History Tobacco Use Types Packs/Day Years Used Date Smoking Tobacco: Former Smokeless Tobacco: Current Alcohol Use Standard Drinks/Week Comments Yes 0 (1 standard drink = 0.6 oz pur e alcohol) Comments No Sex and Gender Information Value Date Recorded Sex Assigned at Not on file Legal Sex Female 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 Gender Identity Not on file Sexual Orientation Not on file Last Filed Vital Signs Vital Sign Reading Time Taken Comments Blood Pressure 136/78 07/14/2019 2:29 PM TILE AND MARBLE INSTALLER Pulse 79 07/14/2019 2:29 PM TILE AND MARBLE INSTALLER Temperature 36.6 C (97.9 F) 07/14/2019 2:29 PM TILE AND MARBLE INSTALLER Respiratory Rate - - Oxygen Saturation 96% 07/14/2019 2:29 PM TILE AND MARBLE INSTALLER Inhaled Oxygen Concentration - - Weight 88.5 kg (195 lb) 12/07/2019 9:43 AM CDT Height 167.6 cm (5' 6 ) 12/07/2019 9:43 AM CDT Body Mass Index 31.47 12/07/2019 9:43 AM CDT Plan of Treatment Not on file Procedures Procedure Name Priority Date/Time Associated Diagnosis [...] age 39, based on guidelines of the [place] [employer] (ACR Practice Parameter for the Performance of Screening and Diagnostic Mammography) and [place] [employer]. For women [...] Narrative 02/04/2019 2:56 PM CDT Patient Name: SHEA JOYNER Dr: Anupama Dietrich CNM DJadeOJaedB: 1960 Exam Date: 02/04/19 1401 Age: 58 Sex: Female MR#: [id number] Loc: RADIOLOGY REPORT Order #[id number] Bone Density Bone Density Hip/Spine (STD) Signed EXAM DESCRIPTION: Bone Density Hip/Spine (STD) REASON FOR STUDY: 58-year-old post-menopausal female, screening for osteoporosis. Computer Scientist/Model: Cursogram A (S/N [id number]) CLINICAL INFORMATION: Current height: 66 inches Maximum [...] by Qasim Collins M.D. AB: Report ID: [id number] Reading Location: [id number] REPORT ELECTRONICALLY SIGNED IN OTHER VENDOR SYSTEM Resulting Agency Comment O Procedure Note Qasim Collins MD - 02/04/2019 Patient Name: JUAN JOYNERANTONY Spencer Dr: Anupama Dietrich CNM D.O.B: 1960 Exam Date: 02/04/19 140 Age: 58 Sex: Female MR#: [id number] Loc: [facility]#: [id number] RADIOLOGY REPORT Order #[id number] Bone Density Bone Density Hip/Spine (STD) Signed EXAM DESCRIPTION: Bone Density Hip/Spine (STD) REASON FOR STUDY: 58-year-old post-menopausal female, screening for osteoporosis. Computer Scientist/Model: HoloBunndle Horizon A (S/N [id number]) CLINICAL INFORMATION: Current height: 66 inches Maximum [...] by Qasim Collins M.D. AB: Report ID: [id number] Reading Location: [place] [address] REPORT ELECTRONICALLY SIGNED IN OTHER VENDOR SYSTEM Anupama Dietrich [facility] IM DXA PROCEDURES Joselyn l Result * ThinPrep Pap with HPV (02/02/2019 3:45 PM CDT) 02/02/2019 3:45 PM CDT 02/03/2019 11:35 AM CDT [facility] - 02/07/2019 11:19 AM CDT [facility] Department of Pathology [address] [place] [address] Final Report with Addendum Patient Name: SHEA JOYNER Address: [address] [place] [address] Gender: F : 1960 (Age: 58) Service: Laboratory Location: Lab Hospital #: [id number] Patient Type: CH Ref Lab Taken: 02/02/2019 Received: 02/03/2019 Accessioned:: 02/04/2019 Reported: 02/07/2019 Physician(s): Anupama Dietrich [facility] Diagnosis: Source of Specimen: SCREENING IMAGED PAP w/ HPV Specimen Adequacy: - Satisfactory for evaluation; endocervical/transformation zone component present General Category: - Negative for intraepithelial lesion or malignancy RAIZA Prater(ASCP) Report Electronically Reviewed and Signed Out By RAIZA Prater(ASC) 02/07/2019 11:19:52 Addenda: HPV RNA Test Interpretation NEGATIVE for types 16, 18, 31, 33, 35, 39, 45, 51, 52, 56, 58, 59, 66 and 68. Test performed utilizing Gen-Probe Aptima assay. RAIZA Prater(ASC) Report Electronically Reviewed and Signed Out By [...] determined by the Surgical Pathology Department at [facility] as part of an ongoing senior quality engineer program and in compliance with federally mandated [...] characteristics determined by the Surgical Pathology Department [facility]. It has not been cleared or approved by the U. S. Food and Drug Administration. Anupama Dietrich [facility] LAB CYTOLOGY ORDERABLES Final Result Performing Organization Address City/State/[facility] Co de Phone Number [address] [phone] from Last 3 Months or Most Recently Relevant to Health Maintenance Insurance MEDICARE COMMERCIAL GENERIC K[place]EM YEE [id number] MEDICARE COMMERCIAL [facility] KAREEM YEE [id number] MEDICARE COMMERCIAL GENERIC AARP Care Teams Assembler Engine Relationship Specialty Start Date End Date Vinnie Denson MD [address] [facility] [address] [place] [address] PCP - General 02/20/20
== END 2024-10-07 09:42 | disposition home or self-care (01) ==
PROVIDERS: PCP Internal Medicine; Visit Provider Nurse Practitioner Family
DX: I87.2 Venous insufficiency (chronic) (peripheral) (principal); M79.669 Pain in unspecified lower leg; M79.89 Other specified soft tissue disorders
CPT/HCPCS: 93970

== ENCOUNTER 2024-11-08 12:52 | Outpatient (CLI) | payer MEDICARE, SELFPAY ==
--- OUTSIDE RECORDS SUMMARY | 2024-11-08 13:59 | XMS_ITS | Encounter Summary ---
Author Organization [facility] Address [address] [place], [place] [address] [address] Care Team Providers Care Database Technician Name Role Phone Unavailable Primary Care Provider Unavailabl e Encounter Details Date Type Department Care Team (Late st Contact Info) Description 05/01/2022 Lab Requisition [facility] [address] [place] [id number] Savage Chen MD [address] [place] [address] Social History Tobacco Use Types Packs/Day Years Used Date Smoking Tobacco: Never Assessed Comments Unknown Sex and Gender Information Value Date Recorded Sex Assigned at Not on file Legal Sex Female 5:31 PM CDT Gender Identity Not on file Sexual Orientation Not on file documented as of this encounter Plan of Treatment Not on file documented as of this encounter Procedures Procedure Name Priority Date/Time Associated Diagnosis Comments DERMATOPATHOLOGY Routine 05/01/2022 12:0 0 AM CDT documented in this encounter Results * DERMATOPATHOLOGY (05/01/2022 12:00 AM CDT) Case Report Dermatopathology Report Case: [id number] Authorizing Provider: Savage Chne MD Collected: 05/01/2022 12:00 AM Ordering Location: [facility] Received: 05/01/2022 05:37 PM Pathologist: [...] specimen consists of a shave biopsy measuring [id number]. Jar 0. 12:50 PM CDT DERMATOPATHOLOGY LABORATORY Microscopic Description Specimen A. SKIN, left breast: The epidermis is mildly acanthotic. There is a lichenoid infiltrate with vacuolar changes of basilar keratinocytes and scattered necrotic keratinocytes. Sections show acantholysis, dyskeratosis, and an inflammatory cell infiltrate. 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 12:50 PM CDT DERMATOPATHOLOGY LABORATORY Disclaimer An external and internal positive and negative controls are appropriate for the histochemical, immunohistochemical and immunofluorescence stain(s) in this case (if any), except where stated explicitly. The performance characteristics of the stain(s) cited in this report were developed and its performance characteristic determined by the Dermatopathology Laboratory at [facility], directed by Dr. Shania Tsang. These tests need not be, and therefore are not, approved by the [place] Food and Drug Administration. The tests are used for clinical purposes. Billing Codes Specimen Charges Stain Charges 56714 1 12:50 PM CDT DERMATOPATHOLOGY LABORATORY Embedded Images 12:50 PM CDT DERMATOPATHOLOGY LABORATORY Pathology/Cytolog y TISSUE SPECIMEN FROM SKIN / Unknown 05/01/2022 05/01/2022 5:37 PM CDT Savage Chen MD LAB - PATHOLOGY/CYTOLOGY ORDERAB LES Final Result DERMATOPATHOLOGY LABORATORY [facility] - Department of Dermatology [address] [phone] documented in this encounter Visit Diagnoses Not on filedocumented in this encounter
--- OUTSIDE RECORDS SUMMARY | 2024-11-08 13:59 | XMS_ITS | Clinical Summary ---
Author Organization [facility] Address [address] [place] [address] Care Team Providers Care Health Services Rn Name Role Phone Unavailable Primary Care Provider Unavailabl e Source Comments [facility],non-owned Affiliates and Associated Physician Practices is amultiple site organization consisting of ambulatory clinics and hospital sitesin [place], [place], [place] and [place]. This disclosure is being madepursuant to the Care Everywhere program and may not contain all information available regarding this patient. Last updated 18.[facility] Hepa Wash Social History Tobacco Use Types Packs/Day Years [...] VACCINE ( - 2023-2 5 season) 2024 DEPRESSION SCREENING 07/13/2024 INFLUENZA VACCINE (Season Ended) 2025 Respiratory Syncytial Virus (RSV) Vaccine Pt: or [...] on patient's age to complete this topic Insurance MEDICARE
--- OUTSIDE RECORDS SUMMARY | 2024-11-08 13:59 | XMS_ITS | Data Portability ---
Author Organization [facility] Address [address] [place] [address] [place] [address] Care Team Providers Care Detacker Name Role Phone JOHNNY SELF Primary Care Provider Assessment Encounter Date Assessment Date Assessment LastModified by Organization Details LastModified Time 05/06/2024 05/06/2024 Annual gynecological exam performed. Patient will come back in a year unless there are new symptoms. [email or web address] Not available 04/21/2024 12:24:14 Plan of Treatment Reminders Order Date Submit Date Provider Last Modified By Organization Details Last Modified Time Details Appointments None recorded . Lab urinalys is, dipstick 2021 022 [facility], [address], [address], [place], [address], 11:23:55 Referral urologis t referral - Overacti ve bladderP lease contact this patient to schedule an appointm entAttac hed are the patients demograp hics, most recent office visit notes and labs results. If you have any question s, please contact me at [phone].Th ank you,Min da, Referral 's 2021 022 NESTOR Collins MD, [address], [place], [address], 3 05:01:33 Procedures None recorded . Surgeries None recorded . Imaging None recorded . Medication Orders fluconaz ole 150 mg tablet 2023 024 [id number], [address], [place], [place], [phone], 4 15:41:54 Macrobid 100 mg capsule 2021 [id number], [address], [place], [place], [phone], 10:43:56 Patient TargetsNo targets recorded. Patient InstructionsNo instructions recorded. Reason for Referral Urologist Referral for Overa ctive urinary bladder Overactive bladder Overactive bladderPlease contact this patient to schedule an appointmentAttached are the patients demographics, most recent office visit notes and labs results.If you have any questions, please contact me at [phone].Thank you,Zari Referral's Referring Physician: Ana Maria Ding GIRLS SWIMMING COACH, Encounter Date: 02/19/2022 Results Created Date Observation [...] Resul ting Lab: [facility] [address] [facility] [address] [facility] [address] Tel: CULTU RE ----- ----- ----- --- No growt h in 1 day (dete ction level of 10,00 0 colon ies / ml.) Not Available [facility] Infectious Disease [address] [place], [address], 02/12/2022 21:59:13 02/12/20 22 02/11/2022 urina lysis , dipst ick Leukocytes tr Not Available [facility] [address], [place], [address], 02/11/2022 11:16:42 02/12/20 22 02/11/2022 urina lysis , dipst ick Nitrite neg Not Available [facility] [address], [place], [address], 02/11/2022 11:16:42 02/12/20 22 02/11/2022 urina lysis , dipst ick Urobilinogen neg Not Available [facility] kat [address], [place], [address], 02/11/2022 11:16:42 02/12/20 22 02/11/2022 urina lysis , dipst ick Protein neg Not Available [facility] [address], [place], [address], 02/11/2022 11:16:42 02/12/20 22 02/11/2022 urina lysis , dipst ick pH 7 Not Available [facility] [address], [place], [address], 02/11/2022 11:16:42 02/12/20 22 02/11/2022 urina lysis , dipst ick Specific [place] 1.[address] [facility] [address], [place], [address], 02/11/2022 11:16:42 02/12/20 22 02/11/2022 urina lysis , dipst ick Ketone neg Not Available [facility] [address], [place], [address], 02/11/2022 11:16:42 02/12/20 22 02/11/2022 urina lysis , dipst ick Bilirubin neg Not Available [facility] yasir [address], [place], [address], 02/11/2022 11:16:42 02/12/20 22 02/11/2022 urina lysis , dipst ick Glucose neg Not Available [facility] [address], [place], [address], 02/11/2022 11:16:42 02/12/20 22 02/11/2022 urina lysis , dipst ick Appearance clear Not Available [facility] venkat [address], [place], [address], 02/11/2022 11:16:42 02/12/20 22 02/11/2022 urina lysis , dipst ick Color yellow Not Available [facility] [address], [place], [address], 02/11/2022 11:16:42 02/20/20 22 02/19/2022 IMAGE GUIDE [...] d, as clinnubia guerra nted. Not Available [facility] Infectious Disease [address] [place], [address], 02/24/2022 14:49:12 Result Notes None recorded. Problems Name Problem SNOMED Code Status Onset Date Resolution Date Notes Provider Name and Address Organization Details Recorded Time Adult health examinati on Active 2014 ROUTINE MEDICAL EXAM;Recor ded Elsewhere: No Locatio n: [facility] rce: EHR Chroni c: N Practice ID: 0001 Billa ble Time: 10:30:00 AM Not Available [facility] 0 16:02:55 Specializ ed medical examinati on Active 2014 Gynecologi carlos Examinatio n;Recorded Elsewhere: No Locatio n: [facility] rce: EHR Chroni c: N Practice ID: 0001 Billa ble Time: 10:30:00 AM Not Available [facility] 0 16:02:55 Menopausa l symptom 97798704 Active 2013 Menopausal or female climacteri c states;Rec orded Elsewhere: No Locatio n: [facility] rce: EHR Chroni c: N Practice ID: 0001 Billa ble Time: 01:00:00 PM Not Available [facility] 0 16:02:55 Screening for malignant neoplasm of cervix Active 2013 Screening for malignant neoplasms of the cervix;Rec orded Elsewhere: No Locatio n: [facility] rce: EHR Chroni c: N Practice ID: 0001 Billa ble Time: 01:00:00 PM Not Available [facility] 0 16:02:55 Screening for malignant neoplasm of rectum Active 2013 Screening for malignant neoplasms of the rectum;Rec orded Elsewhere: No Locatio n: [facility] rce: EHR Chroni c: N Practice ID: 0001 Billa ble Time: 01:00:00 PM Not Available [facility] 0 16:02:55 Female genital organ symptoms 200137492 Active 2010 Unspecifie d symptom associated with female genital organs;Pra ctice ID: 0001 Not Available [facility] 0 16:02:55 Breast lump 33771370 Active 2010 Lump or mass in breast;Pra ctice ID: 0001 Not Available [facility] 0 16:02:55 Cyst of ovary 76903637 Active 2010 OVARIAN CYST;Pract ice ID: 0001 Not Available [facility] 0 16:02:55 Problem Notes None recorded. Procedures Surgical History Date Name Laterality Status Provider Name and Address Organization Details Recorded Time 05/06/2024 Date of Last Pap Smear completed Deanna Mendoza [facility] 05/17/2024 15:54:36 Imaging Results None recorded. [...] Prescrib ed Elsewher e: No Locat ion: [facility] odify By: cmedical Encount er DateTime : [...] Prescrib ed Elsewher e: Yes Loca tion: [facility] odify By: [email or web address] trick En counter DateTime [...] Updated DateTime 02/11/2022 167.64 cm 36 kg/m2 911860.8 2 g 134 mm[Hg] 81 mm[Hg] Pita Sanchez [place] - [facility] 2 11:07:04 Date Recorded Body height Body mass index (BMI) Body weight Systolic blood pressure Diastolic blood pressure Provider Name and Address Organization Details Last Updated DateTime 02/19/2022 167.64 cm 35.7 kg/m2 251469.6 3 g 128 mm[Hg] 82 mm[Hg] Pita Daniel [facility] 2 10:43:50 Date Recorded Body height Body mass index (BMI) Body weight Systolic blood pressure Diastolic blood pressure Provider Name and Address Organization Details Last Updated DateTime 05/06/2024 167.64 cm 35.7 kg/m2 398647.9 1 g 127 mm[Hg] 81 mm[Hg] Deanna Reji [facility] 4 15:10:00 Social History Question Answer Notes LastModified by [facility] ion Details LastModified Time Tobacco Smoking Status Never Smoker Pita Daniel [facility] 02/11/2022 11:09:28 What Is Your Level Of Alcohol Consumption? Occasional Information not available 02/11/2022 Are You Blind Or Do You Have Difficulty Seeing? No Information n ot available 02/11/2022 In The 14 Days Before Symptom Onset, Have You Had Close Contact With A Laboratory-confirm ed COVID-19 While That Case Was Ill? No [email or web address] Information n ot available 05/06/2024 In The 14 Days Before Symptom Onset, Have You Had Close Contact With A Person Who Is Under Investigation For COVID-19 While That Person Was Ill? No [email or web address] Information not available 05/06/2024 Have You Been To An Area Known To Be High Risk For COVID-19? No [email or web address] Information not available 05/06/2024 Are You Deaf [...] [email or web address] Not available 08/2021 11:08:46 Mother Malignant neoplasm of lung [email or web address] Not available 08/2021 11:08:58 Medical History Condition Response Allergies (Food, seasonal, environmental ) N Other N Breast Cancer N Drug/Latex Allergies/Reactions N Blood Transfusion N Dermatologic Disorders N Lung Disease N Defects or Inherited Disease N Breast Problem N Gestational Diabetes N Hematologic disorders N Anesthesia Complications N History of STI N Deep Vein Thrombosis N Polycystic ovary syndrome N Anxiety Disorder N Autoimmune disease N Arthritis N Infertility N Polyps N Acid Reflux (GERD) N History of abnormal pap N Cancer N Stroke N Varicosities N Neurologic/Epilepsy N Endometriosis N High Cholesterol Y Headaches N Fibromyalgia N Kidney Disease N Heart Problems N Kidney or Bladder Problems N Thyroid Problems N GI Problems N Eating Disorder N Anemia N Art (IVF or FET) N Psychiatric Illness N Ovarian Cancer N Diabetes N Pulmonary (TB, Asthma) N Hepatitis/Liver Disease N No Past Medical History N Eczema N Urinary Tract Infection N Abuse/Domestic Violence N Asthma N Trauma/Violence N Depression/ depression N Heart Disease N Pre-Eclampsia N Hypertension Y Osteoporosis N Thrombophilias N Gynecological History Statement/Question Response STIs/STDs N HPV Vaccine N Date of Last Pap Smear 05/06/2024 Sexual Problems? N Current Control Method Menopause LMP Unknown Sexually Active? Y Obstetrics History GPAL:G 0 P 0 0 0 0 Past Encounters Encounter ID Performer Location Encounter Start Date Encounter Closed Date Diagnosis/Indication Diagnosis SNOMED-CT Code Diagnosis ICD10 Code Diagnosis Note [id number] NAT Lu [facility] [address] [address] 02/11/2022 10:36:18 02/11/2022 11:32:17 Increased frequency of urination 517914895 R35.0 Urinary symptoms 0471419 08 R39.9 UA today with only trace [...] counseling and review of plan of care. [id number] NAT Lu [facility] [address] [address] 02/19/2022 10:24:24 02/19/2022 12:03:06 Gynecologic examination 84752241 Z01.419 Take Calcium with Vitamin D 12-1500mg daily. Do monthly self breast exams. It is advised to get annual flu shot in the fall and she could obtain at [facility] or [facility] care clinic. If you haven't received [...] or sooner if needed Overactive urinary bladder 350686667 N32.81 Family his tory of breast cancer 113290387 Z80.3 [id number] SAY PABLO MD [facility] [address] [address] 05/06/2024 14:45:24 05/06/2024 15:45:07 Gynecologic examination 78421058 Z01.419 Well woman care- Cervical cancer screening: Pap smear obtained today, will follow up on the results with the patient as they become available- Breast cancer screening: mammogram completed- HPV immunizati on: does not qualify- STD testing: declined- hereditary cancer screening: does not qualify for testing Candidiasis of vagina 72 913768 B37.31 - red rash extending from vulva [...] Name 02/11/2022 1 [place] Lacey Joyner [id number] Lacey Joyner 02/11/[address] [facility] INSURANCE Lacey Joyner [id number] Lacey Joyner 02/19/2022 1 [place] Lacey Joyner [id number] Lacey Joyner 02/19/2022 2 [facility] INSURANCE Lacey Joyner [id number] Lacey Joyner 05/06/2024 1 [place] Lacey Joyner [id number] Lacey Joyner 05/06/2024 2 [facility] - EPIC INSURANCE Lacey Joyner [id number] Lacey Joyner Notes Date Note Type Note Provider Name and Address Organization Details Recorded Time 02/11/2022 text/html G0 61yo presents with frequent urination and burning with urination x 2-3 daysNo flank pains, N/V or feversNo vaginal symptomsMedical hx : HTN, elevated cholesterol NAT Lu [address], [place], [address], [facility] 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 02/19/2022 11:54:42 05/06/2024 text/html Presents today [...] walking. SAY PABLO MD [address], [place], [address], [facility] 05/06/2024 15:42:32 OBGyn Episode No OBEpisode recorded.
--- OUTSIDE RECORDS SUMMARY | 2024-11-08 14:00 | XMS_ITS | Clinical Summary ---
Author Organization [facility] Address [address] [place] [address] Care Team Providers Care Correctional Counselor/Case Manager Name Role Phone Unavailable Primary Care Provider Unavailabl e Social History Tobacco Use Types Packs/Day Years Used Date Smoking Tobacco: Never Assessed Comments Unknown Sex and Gender Information Value Date Recorded Sex Assigned at Not on file Legal Sex Female 10:10 AM INSPECTOR INSULATION Gender Identity Not on file Sexual Orientation [...]
--- OUTSIDE RECORDS SUMMARY | 2024-11-08 14:00 | XMS_ITS | Clinical Summary ---
Author Organization [facility] Address [address] [place] [address] Care Team Providers Care Addiction Professional Name Role Phone Vinnie Denson MD Primary Care Provider +1- [phone] Allergies No known active allergies Medications atorvastatin [...] on file Legal Sex Female 7:24 AM OUTSIDE CUTTER Gender Identity Not on file Sexual Orientation Not on file Obstetrics History Para Term AB IAB SAB Ectopic Multiple Livin g Live Births 0 0 Last Filed Vital Signs Vital Sign Reading Time Taken Comments Blood Pressure 136/78 07/14/2019 2:29 PM OUTSIDE CUTTER Pulse 79 07/14/2019 2:29 PM OUTSIDE CUTTER Temperature 36.6 C (97.9 F) 07/14/2019 2:29 PM OUTSIDE CUTTER Respiratory Rate - - Oxygen Saturation 96% 07/14/2019 2:29 PM OUTSIDE CUTTER Inhaled Oxygen Concentration - - Weight 88.5 [...] age 39, based on guidelines of the [employer] (ACR Practice Parameter for the Performance of Screening and Diagnostic Mammography) and [employer] of Obstetricians and Gynecologists. For women [...] 02/04/19 140 Age: 58 Sex: Female MR#: [id number] Loc: [facility]#: [id number] RADIOLOGY REPORT Order #[id number] Bone Density Bone Density Hip/Spine (STD) Signed EXAM DESCRIPTION: Bone Density Hip/Spine (STD) REASON FOR STUDY: 58-year-old post-menopausal female, screening for osteoporosis. Senior Telecommunications Consultant/Model: HoloCalciMedica Horizon A (S/N [id number]) CLINICAL INFORMATION: Current height: 66 inches Maximum [...] by Qasim Collins M.D. AB: Report ID: [id number] Reading Location: [place] [address] REPORT ELECTRONICALLY SIGNED IN OTHER VENDOR SYSTEM Resulting Agency Comment O Procedure Note Qasim Collins MD - 02/04/2019 Patient Name: ANGELLALACEY Dr: Anupama Dietrich CNM D.O.B: 1960 Exam Date: 02/04/19 1401 Age: 58 Sex: Female MR#: [id number] Loc: RADIOLOGY REPORT Order #[id number] Bone Density Bone Density Hip/Spine (STD) Signed EXAM DESCRIPTION: Bone Density Hip/Spine (STD) REASON FOR STUDY: 58-year-old post-menopausal female, screening for osteoporosis. Senior Telecommunications Consultant/Model: HoloCalciMedica Horizon A (S/N [id number]) CLINICAL INFORMATION: Current height: 66 inches Maximum [...] by Qasim Collins M.D. AB: Report ID: [id number] Reading Location: [place] [address] REPORT ELECTRONICALLY SIGNED IN OTHER VENDOR SYSTEM Anupama Dietrich CN IM DXA PROCEDURES Joselyn l Result * ThinPrep Pap with HPV (02/02/2019 3:45 PM CDT) 02/02/2019 3:45 PM CDT 02/03/2019 11:35 AM CDT [facility] - 02/07/2019 11:19 AM CDT [facility] Department of Pathology [address] [place] [address] Final Report with Addendum Patient Name: LACEY JOYNER Address: [address] [place] [address] Gender: F : 1960 (Age: 58) Service: Laboratory [facility] #: [id number] Patient Type: Ref Lab Taken: 02/02/2019 Received: 02/03/2019 Accessioned:: 02/04/2019 Reported: 02/07/2019 Physician(s): Anupama Dietrich [facility] Diagnosis: Source of Specimen: SCREENING IMAGED PAP w/ HPV Specimen Adequacy: - Satisfactory for evaluation; endocervical/transformation zone component present General Category: - Negative for intraepithelial lesion or malignancy RAIZA Prater(ASCP) Report Electronically Reviewed and Signed Out By RAIZA Prtaer(ASCP) 02/07/2019 11:19:52 Addenda: HPV RNA Test Interpretation NEGATIVE for types 16, 18, 31, 33, 35, 39, 45, 51, 52, 56, 58, 59, 66 and 68. Test performed utilizing Gen-Skiin Fundementals Aptima assay. RAIZA Prater(ASCP) Report Electronically Reviewed [...] determined by the Surgical Pathology Department at [facility] as part of an ongoing production quality analyst program and in compliance with federally mandated [...] Dietrich CN LAB CYTOLOGY [place] [address], [facility] [phone] from Last 3 Months or Most Recently Relevant to Health Maintenance Insurance MEDICARE COMMERCIAL GENERIC MEDICARE COMMERCIAL GENERIC KAREEM YEE [id number] MEDICARE COMMERCIAL GENERIC KAREEM YEE [id number] [facility] Care Teams Addiction Professional Relationship Specialty Start Date End Date Vinnie Denson MD [address] [facility] [address] [place] [address] PCP - General 02/20/20
--- OUTSIDE RECORDS SUMMARY | 2024-11-08 14:00 | XMS_ITS | Referral Summary ---
Author Organization [facility] Address [address] [place] [address] Care Team Providers Care Criminal Defense Lawyer Name Role Phone Vinnie Denson MD Primary Care Provider +1- [phone] Allergies No known active allergies Medications atorvastatin [...] on file Legal Sex Female 7:24 AM CARTOGRAPHY TECHNICIAN Gender Identity Not on file Sexual Orientation Not on file Last Filed Vital Signs Vital Sign Reading Time Taken Comments Blood Pressure 136/78 07/14/2019 2:29 PM CARTOGRAPHY TECHNICIAN Pulse 79 07/14/2019 2:29 PM CARTOGRAPHY TECHNICIAN Temperature 36.6 C (97.9 F) 07/14/2019 2:29 PM CARTOGRAPHY TECHNICIAN Respiratory Rate - - Oxygen Saturation 96% 07/14/2019 2:29 PM CARTOGRAPHY TECHNICIAN Inhaled Oxygen Concentration - - Weight 88.5 [...] age 39, based on guidelines of the [employer] (ACR Practice Parameter for the Performance of Screening and Diagnostic Mammography) and [employer]ians and Gynecologists. For women [...] Name: SHEA JOYNER Dr: Anupama Dietrich CNM DJadeOJadeB: 1960 Exam Date: 02/04/19 1401 Age: 58 Sex: Female MR#: [id number] Loc: RADIOLOGY REPORT Order #[id number] Bone Density Bone Density Hip/Spine (STD) Signed EXAM DESCRIPTION: Bone Density Hip/Spine (STD) REASON FOR STUDY: 58-year-old post-menopausal female, screening for osteoporosis. Sculpture Conservator/Model: Phobious A (S/N [id number]) CLINICAL INFORMATION: Current height: 66 inches Maximum [...] by Qasim Collins M.D. AB: Report ID: [id number] Reading Location: [id number] REPORT ELECTRONICALLY SIGNED IN OTHER VENDOR SYSTEM Resulting Agency Comment O Procedure Note Qasim Collins MD - 02/04/2019 Patient Name: JUAN JOYNERANTONY Spencer Dr: Anupama Dietrich CNM D.O.B: 1960 Exam Date: 02/04/19 140 Age: 58 Sex: Female MR#: [id number] Loc: [facility]#: [id number] RADIOLOGY REPORT Order #[id number] Bone Density Bone Density Hip/Spine (STD) Signed EXAM DESCRIPTION: Bone Density Hip/Spine (STD) REASON FOR STUDY: 58-year-old post-menopausal female, screening for osteoporosis. Sculpture Conservator/Model: HoloPriori Data Horizon A (S/N [id number]) CLINICAL INFORMATION: Current height: 66 inches Maximum [...] by Qasim Collins M.D. AB: Report ID: [id number] Reading Location: [place] [address] REPORT ELECTRONICALLY SIGNED IN OTHER VENDOR SYSTEM Anupama Dietrich [facility] IM DXA PROCEDURES Joselyn l Result * ThinPrep Pap with HPV (02/02/2019 3:45 PM CDT) 02/02/2019 3:45 PM CDT 02/03/2019 11:35 AM CDT [facility] - 02/07/2019 11:19 AM CDT [facility] Department of Pathology [address] [place] [address] Final Report with Addendum Patient Name: SHEA JOYNER Address: [address] [place] [address] Gender: F : 1960 (Age: 58) Service: Laboratory [facility]: [facility] #: [id number] Patient Type: CH Ref Lab Taken: 02/02/2019 Received: 02/03/2019 Accessioned:: 02/04/2019 Reported: 02/07/2019 Physician(s): Anupama Dietrich [facility] Diagnosis: Source of Specimen: SCREENING IMAGED PAP [...] determined by the Surgical Pathology Department at [facility] as part of an ongoing manufacturing quality technician program and in compliance with federally mandated [...] characteristics determined by the Surgical Pathology Department [facility]. It has not been cleared or approved by the U. S. Food and Drug Administration. Anupama Dietrich [facility] LAB CYTOLOGY ORDERABLES Final Result Performing Organization Address City/State/[facility] Co de Phone Number [address] [phone] from Last 3 Months or Most Recently Relevant to Health Maintenance Insurance MEDICARE COMMERCIAL GENERIC [place]EM YEE [id number] MEDICARE COMMERCIAL [facility] [place]EM YEE [id number] MEDICARE COMMERCIAL GENERIC AARP Care Teams Criminal Defense Lawyer Relationship Specialty Start Date End Date Vinnie Denson MD [address] [facility] [address] [place] [address] PCP - General 02/20/20
--- NOTE | 2024-11-08 14:45 | NEURO_ITS ---
Impression: # Complains of paresthesia of lower extremities. ? # Normal motor/sensory Nerve Conduction Study. ? # Normal needle/EMG exam. ? # Clinical correlation recommended. ?Nerve Conduction Studies Anti Sensory Summary Table ?Stim Site NR Peak (ms) P-T Amp (?V) Site1 Site2 Delta-P (ms) Dist (cm) Rey (m/s) Left Sup Fibular Anti Sensory (Ant Lat Mall) 14 cm ? 3.1 15.8 14 cm Ant Lat Mall 3.1 16.0 52 Right Sup Fibular Anti Sensory (Ant Lat Mall) 14 cm ? 3.3 12.4 14 cm Ant Lat Mall 3.3 16.0 48 Left Sural Anti Sensory (Lat Mall) Calf ? 3.5 8.7 Calf Lat Mall 3.5 16.0 46 Right Sural Anti Sensory (Lat Mall) Calf ? 3.3 6.6 Calf Lat Mall 3.3 16.0 48 Motor Summary Table ?Stim Site NR Onset (ms) O-P Amp (mV) Site1 Site2 Delta-0 (ms) Dist (cm) Rey (m/s) Left Peroneal Motor (Vastus Med) Ankle ? 4.1 2.0 Popit Ankle 7.3 39.0 53 Popit ? 11.4 1.4 Right Peroneal Motor (Vastus Med) Ankle ? 3.9 0.8 Popit Ankle 7.6 39.0 51 Popit ? 11.5 1.3 Left Tibial Motor (Abd Boswell Brev) Ankle ? 4.2 4.8 Knee Ankle 8.5 41.0 48 Knee ? 12.7 2.7 Right Tibial Motor (Abd Boswell Brev) Ankle ? 4.3 1.9 Knee Ankle 7.5 40.0 53 Knee ? 11.8 1.4 F Wave Studies ?NR F-Lat (ms) L-R F-Lat (ms) Left Peroneal (Mrkrs) (EDB) ? 47.07 0.29 Right Peroneal (Mrkrs) (EDB) ? 47.36 0.29 Left Tibial (Mrkrs) (Abd Hallucis) ? 50.36 0.35 Right Tibial (Mrkrs) (Abd Hallucis) ? 50.01 0.35 EMG ?Side Muscle Nerve Root Ins Act Fibs Amp Dur Recrt Comment Right AntTibialis Dp Br Fibular L4-5 Nml Nml Nml Nml Nml Right Gastroc Tibial S1-2 Nml Nml Nml Nml Nml Right Fibularis Long Sup Br Fibular L5-S1 Nml Nml Nml Nml Nml Right Flex Dig Long Tibial L5-S2 Nml Nml Nml Nml Nml Right Ext Dig Brev Dp Br Fibular L5, S1 Nml Nml Nml Nml Nml Right QuadratusFem QuadFemoris L4-5, S1 Nml Nml Nml Nml Nml Left AntTibialis Dp Br Fibular L4-5 Nml Nml Nml Nml Nml Left Gastroc Tibial S1-2 Nml Nml Nml Nml Nml Left Fibularis Long Sup Br Fibular L5-S1 Nml Nml Nml Nml Nml Left Flex Dig Long Tibial L5-S2 Nml Nml Nml Nml Nml Left Ext Dig Brev Dp Br Fibular L5, S1 Nml Nml Nml Nml Nml Left QuadratusFem QuadFemoris L4-5, S1 Nml Nml Nml Nml Nml MTDD
== END 2024-11-08 12:53 | disposition home or self-care (01) ==
LOC: ANHNEURO 12:55
PROVIDERS: PCP Internal Medicine; Visit Provider Nurse Practitioner Family
DX: R20.0 Anesthesia of skin (principal); R20.8 Other disturbances of skin sensation; R20.2 Paresthesia of skin
CPT/HCPCS: 95886; 95910

== ENCOUNTER 2024-12-14 15:03 | Outpatient (CLI) | payer MEDICARE, SELFPAY ==
--- NOTE | ~2024-12-14 | XR_ITS ---
XR hip LT min 2V 12/14/2024 15:54 Indication: Left hip pain Procedure: 2 views left hip Comparison: No prior studies for comparison. Findings: Mild osteoarthritis of the left hip. No acute fracture, subluxation or dislocation. No soft tissue abnormality. No foreign bodies. Impression: 1: Mild osteoarthritis of the left hip. Reviewed, dictated and finalized at location A. Impression: 1: Mild osteoarthritis of the left hip.
--- NOTE | ~2024-12-14 | XR_ITS ---
3 VIEWS LUMBAR SPINE Ordering provider: Jasiel Eason DO History: . M54.9 - Dorsalgia, unspecified . Comparison: None. FINDINGS: VERTEBRAL BODIES: No visible fracture or subluxation. Degenerative changes of the spine. DISK SPACES: Normal. Multilevel facet joint disease. SOFT TISSUES: Atherosclerotic changes of the aorta. IMPRESSION: No acute osseous abnormality lumbar spine. Degenerative changes of the spine with multilevel facet joint disease. Reviewed, dictated and finalized at location A.
--- OUTSIDE RECORDS SUMMARY | 2024-12-14 15:12 | XMS_ITS | Clinical Summary ---
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
--- OUTSIDE RECORDS SUMMARY | 2024-12-14 15:12 | XMS_ITS | Data Portability ---
Author Organization [facility] Address [address] [place] [address] [address] Care Team Providers Care Area Development Manager Name Role Phone JOHNNY SELF Primary Care Provider Assessment Encounter Date Assessment Date Assessment LastModified by Organization Details LastModified Time 05/06/2024 05/06/2024 Annual gynecological exam performed. Patient will come back in a year unless there are new symptoms. [email or web address] Not available 04/21/2024 12:24:14 Plan of Treatment Reminders Order Date Submit Date Provider Last Modified By Organization Details Last Modified Time Details Appointments None recorded . Lab urinalys is, dipstick 2021 022 [facility], [address], [address], [place], [address], 11:23:55 Referral urologis t referral - Overacti ve bladderP lease contact this patient to schedule an appointm entAttac hed are the patients demograp hics, most recent office visit notes and labs results. If you have any question s, please contact me at [phone].Th ank you,Min da, Referral 's 2021 022 NESTOR Collins MD, [address] [facility], [place], [address], 3 05:01:33 Procedures None recorded . Surgeries None recorded . Imaging None recorded . Medication Orders fluconaz ole 150 mg tablet 2023 024 NESTOR [id number], [address], [place], [place], [id number], 4 15:41:54 Macrobid 100 mg capsule 2021 reinaldochroshanel [facility]112, [address], [place], [place], [id number], 10:43:56 Patient TargetsNo targets recorded. Patient InstructionsNo instructions recorded. Reason for Referral Urologist Referral for Overa ctive urinary bladder Overactive bladder Overactive bladderPlease contact this patient to schedule an appointmentAttached are the patients demographics, most recent office visit notes and labs results.If you have any questions, please contact me at [phone].Thank you,Zari Referral's Referring Physician: Ana Maria Ding HOLLOW CORE DOOR FRAME ASSEMBLER, Encounter Date: 02/19/2022 Results Created Date Observation [...] Resul ting Lab: [facility] [address] [facility] [address] Tel: CULTU RE ----- ----- ----- --- No growt h in 1 day (dete ction level of 10,00 0 colon ies / ml.) Not Available [facility] Infectious Disease [address] [place], [address], 02/12/2022 21:59:13 02/12/20 22 02/11/2022 urina lysis , dipst ick Leukocytes tr Not Available [facility] [address], [place], [address], 02/11/2022 11:16:42 02/12/20 22 02/11/2022 urina lysis , dipst ick Nitrite neg Not Available [facility] [address], [place], [address], 02/11/2022 11:16:42 02/12/20 22 02/11/2022 urina lysis , dipst ick Urobilinogen neg Not Available [facility] kat [address], [place], [address], 02/11/2022 11:16:42 02/12/20 22 02/11/2022 urina lysis , dipst ick Protein neg Not Available [facility] [address], [place], [address], 02/11/2022 11:16:42 02/12/20 22 02/11/2022 urina lysis , dipst ick pH 7 Not Available [facility] [address], [place], [address], 02/11/2022 11:16:42 02/12/20 22 02/11/2022 urina lysis , dipst ick Specific Russell 1.005 Not Available [facility] [address], [place], [address], 02/11/2022 11:16:42 02/12/20 22 02/11/2022 urina lysis , dipst ick Ketone neg Not Available [facility] [address], [place], [address], 02/11/2022 11:16:42 02/12/20 22 02/11/2022 urina lysis , dipst ick Bilirubin neg Not Available [facility] yasir [address], [place], [address], 02/11/2022 11:16:42 02/12/20 22 02/11/2022 urina lysis , dipst ick Glucose neg Not Available [facility] [address], [place], [address], 02/11/2022 11:16:42 02/12/20 22 02/11/2022 urina lysis , dipst ick Appearance clear Not Available [facility] venkat [address], [place], [address], 02/11/2022 11:16:42 02/12/20 22 02/11/2022 urina lysis , dipst ick Color yellow Not Available [facility] [address], [place], [address], 02/11/2022 11:16:42 02/20/20 22 02/19/2022 IMAGE GUIDE [...] d, as clinnubia guerra nted. Not Available [facility] Infectious Disease [address] [place], [address], 02/24/2022 14:49:12 Result Notes None recorded. Problems Name Problem SNOMED Code Status Onset Date Resolution Date Notes Provider Name and Address Organization Details Recorded Time Adult health examinati on Active 2014 ROUTINE MEDICAL EXAM;Recor ded Elsewhere: No Locatio n: [facility] rce: EHR Chroni c: N Practice ID: 0001 B[place] ble Time: 10:30:00 AM Not Available [facility] 0 16:02:55 Specializ ed medical examinati on Active 2014 Gynecologi carlos Examinatio n;Recorded Elsewhere: No Locatio n: [facility] rce: EHR Chroni c: N Practice ID: 0001 B[place] Time: 10:30:00 AM Not Available [facility] 0 16:02:55 Menopausa l symptom 20340600 Active 2013 Menopausal or female climacteri c states;Rec orded Elsewhere: No Locatio n: [facility] rce: EHR Chroni c: N Practice ID: 0001 [place] Time: 01:00:00 PM Not Available [facility] 0 16:02:55 Screening for malignant neoplasm of cervix Active 2013 Screening for malignant neoplasms of the cervix;Rec orded Elsewhere: No Locatio n: [facility] rce: EHR Chroni c: N Practice ID: 0001 [place] Time: 01:00:00 PM Not Available [facility] 0 16:02:55 Screening for malignant neoplasm of rectum Active 2013 Screening for malignant neoplasms of the rectum;Rec orded Elsewhere: No Locatio n: [facility] rce: EHR Chroni c: N Practice ID: 0001 [place] Time: 01:00:00 PM Not Available [facility] 0 16:02:55 Female genital organ symptoms 394785940 Active 2010 Unspecifie d symptom associated with female genital organs;Pra ctice ID: 0001 Not Available [facility] 0 16:02:55 Breast lump 34646174 Active 2010 Lump or mass in breast;Pra ctice ID: 0001 Not Available [facility] 0 16:02:55 Cyst of ovary 52355853 Active 2010 OVARIAN CYST;Pract ice ID: 0001 Not Available [facility] 0 16:02:55 Problem Notes None recorded. Procedures Surgical History Date Name Laterality Status Provider Name and Address Organization Details Recorded Time 05/06/2024 Date of Last Pap Smear completed Deanna Mendoza [facility] 05/17/2024 15:54:36 Imaging Results None recorded. [...] Prescrib ed Elsewher e: No Locat ion: [facility] odify By: cmedical Encount er DateTime : [...] Prescrib ed Elsewher e: Yes Loca tion: [facility] odify By: [email or web address] trick En counter DateTime [...] Updated DateTime 02/11/2022 167.64 cm 36 kg/m2 707005.8 2 g 134 mm[Hg] 81 mm[Hg] Pita Sanchez [place] [facility] 2 11:07:04 Date Recorded Body height Body mass index (BMI) Body weight Systolic blood pressure Diastolic blood pressure Provider Name and Address Organization Details Last Updated DateTime 02/19/2022 167.64 cm 35.7 kg/m2 386179.6 3 g 128 mm[Hg] 82 mm[Hg] Pita Daniel [facility] 2 10:43:50 Date Recorded Body height Body mass index (BMI) Body weight Systolic blood pressure Diastolic blood pressure Provider Name and Address Organization Details Last Updated DateTime 05/06/2024 167.64 cm 35.7 kg/m2 042433.9 1 g 127 mm[Hg] 81 mm[Hg] Deanna Reji [facility] 4 15:10:00 Social History Question Answer Notes LastModified by Snapcious Details LastModified Time Tobacco Smoking Status Never Smoker Pita Sanchez [facility] 02/11/2022 11:09:28 Are You Blind Or Do You Have Difficulty Seeing? No Information n ot available 02/11/2022 In The 14 Days Before Symptom Onset, Have You Had Close Contact With A Laboratory-confirm ed COVID-19 While That Case Was Ill? No [email or web address] Information n ot available 05/06/2024 In The 14 Days Before Symptom Onset, Have You Had Close Contact With A Person Who Is Under Investigation For COVID-19 While That Person Was Ill? No [email or web address] Information not available 05/06/2024 Have You Been To An Area Known To Be High Risk For COVID-19? No Information not available 05/06/2024 Are You Deaf Or Do You Have Serious Difficulty Hearing? No Information not available 02/11/2022 What Type Of Diet Are You Following? REGULAR Information n ot available 02/11/2022 Do You Have Difficulty Walking Or Climbing Stairs? No Information not available 02/11/2022 Sex: Unknown Functional Status Question Answer Note LastModified by VokleizCineFlow ion Details LastModified Time What is your level of alcohol consumption? Occasional Information not available 02/11/2022 Are you able [...] SNOMED-CT Code Diagnosis ICD10 Code Diagnosis Note [id number] NAT Lu [facility] [address] [address] 02/11/2022 10:36:18 02/11/2022 11:32:17 Increased frequency of urination 003887970 R35.0 Urinary symptoms 0890894 08 R39.9 UA today with only trace [...] counseling and review of plan of care. [id number] NAT Lu [facility] [address] [address] 02/19/2022 10:24:24 02/19/2022 12:03:06 Gynecologic examination 99746971 Z01.419 Take Calcium with Vitamin D 12-1500mg daily. Do monthly self breast exams. It is advised to get annual flu shot in the fall and she could obtain at [facility] or [facility] care clinic. If you haven't received the [...] or sooner if needed Overactive urinary bladder 012650693 N32.81 Family his tory of breast cancer 242491055 Z80.3 [id number] SAY PABLO MD [facility] [address] [address] 05/06/2024 14:45:24 05/06/2024 15:45:07 Gynecologic examination 38114541 Z01.419 Well woman care- Cervical cancer screening: Pap smear obtained today, will follow up on the results with the patient as they become available- Breast cancer screening: mammogram completed- HPV immunizati on: does not qualify- STD testing: declined- hereditary cancer screening: does not qualify for testing Candidiasis of vagina 72 661262 B37.31 - red rash extending from vulva [...] Name 02/11/2022 1 [place] Lacey Joyner [id number] Lacey Joyner 02/11/2022 2 [facility] INSURANCE Lacey Joyner [id number] Lacey Joyner 02/19/2022 1 [place] Lacey Joyner [id number] Lacey Joyner 02/19/2022 2 [facility] INSURANCE Lacey Joyner [id number] Lacey Joyner 05/06/2024 1 [place] Lacey Joyner [id number] Lacey Joyner 05/06/2024 2 [facility] - EPIC INSURANCE Lacey Joyner [id number] Lacey Joyner Notes Date Note Type Note Provider Name and Address Organization Details Recorded Time 02/11/2022 text/html G0 61yo presents with frequent urination and burning with urination x 2-3 daysNo flank pains, N/V or feversNo vaginal symptomsMedical hx : HTN, elevated cholesterol NAT Lu [address], [place], [address], [facility] 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 02/19/2022 11:54:42 05/06/2024 text/html Presents today [...] walking. SAY PABLO MD [address], [place], [address], [facility] 05/06/2024 15:42:32 OBGyn Episode No OBEpisode recorded.
--- OUTSIDE RECORDS SUMMARY | 2024-12-14 15:12 | XMS_ITS | Clinical Summary ---
Author Organization [facility] Address [address] [place] [address] Care Team Providers Care Deliverer Pharmacy Name Role Phone Unavailable Primary Care Provider Unavailabl e Source Comments [facility],non-owned Affiliates and Associated Physician Practices is amultiple site organization consisting of ambulatory clinics and hospital sitesin [place], [place], [place] and [place]. This disclosure is being madepursuant to the Care Everywhere program and may not contain all information available regarding this patient. Last updated 18.[facility] ePatientFinder Social History Tobacco Use Types Packs/Day Years [...]
--- OUTSIDE RECORDS SUMMARY | 2024-12-14 15:12 | XMS_ITS | Clinical Summary ---
Author Organization [facility] Address [address] [place] [address] Care Team Providers Care Government Affairs Director Name Role Phone Vinnie Denson MD Primary Care Provider +1- [phone] Allergies No known active allergies Medications atorvastatin [...] on file Legal Sex Female 7:24 AM RIVETER AUTOMOBILE BRAKES Gender Identity Not on file Sexual Orientation Not on file Obstetrics History Para Term AB IAB SAB Ectopic Multiple Livin g Live Births 0 0 Last Filed Vital Signs Vital Sign Reading Time Taken Comments Blood Pressure 136/78 07/14/2019 2:29 PM RIVETER AUTOMOBILE BRAKES Pulse 79 07/14/2019 2:29 PM RIVETER AUTOMOBILE BRAKES Temperature 36.6 C (97.9 F) 07/14/2019 2:29 PM RIVETER AUTOMOBILE BRAKES Respiratory Rate - - Oxygen Saturation 96% 07/14/2019 2:29 PM RIVETER AUTOMOBILE BRAKES Inhaled Oxygen Concentration - - Weight 88.5 kg (195 lb) 12/07/2019 9:43 AM CDT Height 167.6 cm (5' 6) 12/07/2019 9:43 AM CDT Body Mass Index [...] 02/02/2019 Osteoporosis Screening-Bone Density Scan 02/04/2021 02/04/2019 Well Visit 65+ 2024 02/02/2019 Influenza Vaccine (Season Ended) 2025 04/04/2018, 03/22/2017, 04/06/2016, Additional history exists Breast Cancer Screening-Mammogram 04/07/2025 04/07/2024, 01/21/2023, 06/11/2021, [...] age 40, based on guidelines of the [place] [employer] (ACR Practice Parameter for the Performance of Screening and Diagnostic Mammography) and [place] [employer]nec[employer]. For women [...] 02/04/19 140 Age: 58 Sex: Female MR#: [id number] Loc: [facility]#: [id number] RADIOLOGY REPORT Order #[id number] Bone Density Bone Density Hip/Spine (STD) Signed EXAM DESCRIPTION: Bone Density Hip/Spine (STD) REASON FOR STUDY: 58-year-old post-menopausal female, screening for osteoporosis. Roof Designer/Model: HoloMorgan Everett A (S/N [id number]) CLINICAL INFORMATION: Current height: 66 inches Maximum [...] by Qasim Collins M.D. AB: Report ID: [id number] Reading Location: [place] [address] REPORT ELECTRONICALLY SIGNED IN OTHER VENDOR SYSTEM Resulting Agency Comment O Procedure Note Qasim Collins MD - 02/04/2019 Patient Name: MILKALACEY KISER Dr: Anupama Dietrich CNM D.O.B: 1960 Exam Date: 02/04/19 1401 Age: 58 Sex: Female MR#: [id number] Loc: RADIOLOGY REPORT Order #[id number] Bone Density Bone Density Hip/Spine (STD) Signed EXAM DESCRIPTION: Bone Density Hip/Spine (STD) REASON FOR STUDY: 58-year-old post-menopausal female, screening for osteoporosis. Roof Designer/Model: HoloPremise Horizon A (S/N [id number]) CLINICAL INFORMATION: Current height: 66 inches Maximum [...] by Qasim Collins M.D. AB: Report ID: [id number] Reading Location: [place] [address] REPORT ELECTRONICALLY SIGNED IN OTHER VENDOR SYSTEM Anupama Dietrich CNIvette IMG DXA PROCEDURES Joselyn l Result * ThinPrep Pap with HPV (02/02/2019 3:45 PM CDT) 02/02/2019 3:45 PM CDT 02/03/2019 11:35 AM CDT [facility] - 02/07/2019 11:19 AM CDT [facility] Department of Pathology [address] [place] [address] Final Report with Addendum Patient Name: LACEY JOYNER Address: [address] [place] [address] Gender: F : 1960 (Age: 58) Service: Laboratory Location: Lab [facility] #: [id number] Patient Type: Ref Lab Taken: 02/02/2019 Received: 02/03/2019 Accessioned:: 02/04/2019 Reported: 02/07/2019 Physician(s): Anupama Dietrich [facility] Diagnosis: Source of Specimen: SCREENING IMAGED PAP [...] Test performed utilizing Gen-Probe Aptima assay. RAIZA Prater(ASCP) Report Electronically Reviewed and Signed Out By RAIZA Prater(ASCP) 02/07/2019 10:02:02 Specimen(s) Received: A: SCREENING IMAGED [...] determined by the Surgical Pathology Department at [facility] as part of an ongoing senior software quality analyst program and in compliance with [...] characteristics determined by the Surgical Pathology Department [facility]. It has not been cleared or approved by the U. S. Food and Drug Administration. Anupama Karlo CN LAB CYTOLOGY ORDERABLES Final Result [facility] [place] [address], [facility] [phone] from Last 3 Months or Most Recently Relevant to Health Maintenance Insurance MEDICARE [facility] Address: [address] [address] [place] [address] COMMERCIAL GENERIC MEDICARE COMMERCIAL GENERIC [place] [id number] MEDICARE COMMERCIAL GENERIC [place] [id number] [facility] Care Teams Government Affairs Director Relationship Specialty Start Date End Date Vinnie Denson MD [address] [facility] [address] [place] [address] PCP - General 02/20/20
--- OUTSIDE RECORDS SUMMARY | 2024-12-14 15:12 | XMS_ITS | Encounter Summary ---
Author Organization [facility] Address [address] [place], [place] [address] [address] Care Team Providers Care Parts Lister Name Role Phone Unavailable Primary Care Provider Unavailabl e Encounter Details Date Type Department Care Team (Late st Contact Info) Description 05/01/2022 Lab Requisition [facility] DermPath Lab [address] [place] [phone] Savage Chen MD [address] [place] [address] Social History Tobacco Use Types [...] AM CDT) Case Report Dermatopathology Report Case: [id number] Authorizing Provider: Savage Chen MD Collected: 05/01/2022 12:00 AM Ordering Location: [facility] DermPath Lab Received: 05/01/2022 05:37 PM Pathologist: Nancy Ryan MD Specimen: Skin, left breast 12:50 PM CDT DERMATOPATHOLOGY LABORATORY Final Diagnosis Specimen A. 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 The specimen consists of a shave biopsy measuring 3p9m3zk. Jar 0. 12:50 PM CDT DERMATOPATHOLOGY LABORATORY Microscopic Description Specimen A. SKIN, left breast: The epidermis is mildly acanthotic. There is a lichenoid infiltrate with vacuolar changes of basilar keratinocytes and scattered necrotic keratinocytes. Sections show acantholysis, dyskeratosis, and an inflammatory cell infiltrate. COMMENT: In the correct clinical setting the acantholytic dyskeratosis can be seen in transient acantholytic dermatosis (Kulwant's disease). 12:50 PM CDT DERMATOPATHOLOGY LABORATORY Disclaimer An external and internal positive and negative controls are appropriate for the histochemical, immunohistochemical and immunofluorescence stain(s) in this case (if any), except where stated explicitly. The performance characteristics of the stain(s) cited in this report were developed and its performance characteristic determined by the Dermatopathology Laboratory at [facility], directed by Dr. Shania Tsang. These tests need not be, and therefore are not, approved by the [place] Food and Drug Administration. The tests are used for clinical purposes. Billing Codes Specimen Charges Stain Charges 96149 1 12:50 PM CDT DERMATOPATHOLOGY LABORATORY Embedded Images 12:50 PM CDT DERMATOPATHOLOGY LABORATORY Pathology/Cytolog y TISSUE SPECIMEN FROM SKIN / Unknown 05/01/2022 05/01/2022 5:37 PM CDT Savage Chen MD LAB - PATHOLOGY/CYTOLOGY ORDERAB LES Final Result DERMATOPATHOLOGY LABORATORY [facility] - Department of Dermatology [address], [address] [phone] documented in this encounter Visit Diagnoses Not on filedocumented in this encounter
--- OUTSIDE RECORDS SUMMARY | 2024-12-14 15:12 | XMS_ITS | Referral Summary ---
Author Organization [facility] Address [address] [place] [address] Care Team Providers Care Database Marketing Manager Name Role Phone Vinnie Denson MD Primary Care Provider +1- [phone] Allergies No known active allergies Medications atorvastatin [...] on file Legal Sex Female 7:24 AM ELECTRICAL AND RADIO AIRCRAFT MECHANIC Gender Identity Not on file Sexual Orientation Not on file Last Filed Vital Signs Vital Sign Reading Time Taken Comments Blood Pressure 136/78 07/14/2019 2:29 PM ELECTRICAL AND RADIO AIRCRAFT MECHANIC Pulse 79 07/14/2019 2:29 PM ELECTRICAL AND RADIO AIRCRAFT MECHANIC Temperature 36.6 C (97.9 F) 07/14/2019 2:29 PM ELECTRICAL AND RADIO AIRCRAFT MECHANIC Respiratory Rate - - Oxygen Saturation 96% 07/14/2019 2:29 PM ELECTRICAL AND RADIO AIRCRAFT MECHANIC Inhaled Oxygen Concentration - - Weight 88.5 [...] age 40, based on guidelines of the [place] [employer] (ACR Practice Parameter for the Performance of Screening and Diagnostic Mammography) and [place] [employer] and [employer]nec[employer]. For women [...] 02/04/19 1401 Age: 58 Sex: Female MR#: [id number] Loc: RADIOLOGY REPORT Order #[id number] Bone Density Bone Density Hip/Spine (STD) Signed EXAM DESCRIPTION: Bone Density Hip/Spine (STD) REASON FOR STUDY: 58-year-old post-menopausal female, screening for osteoporosis. Heel Molder/Model: DocuSpeak A (S/N [id number]) CLINICAL INFORMATION: Current height: 66 inches Maximum [...] by Qasim Collins M.D. AB: Report ID: [id number] Reading Location: [id number] REPORT ELECTRONICALLY SIGNED IN OTHER VENDOR SYSTEM Resulting Agency Comment O Procedure Note Qasim Collins MD - 02/04/2019 Patient Name: JUAN JOYNERANTONY [address] Dr: Anupama Dietrich CNM D.O.B: 1960 Exam Date: 02/04/19 140 Age: 58 Sex: Female MR#: [id number] Loc: [facility]#: [id number] RADIOLOGY REPORT Order #[id number] Bone Density Bone Density Hip/Spine (STD) Signed EXAM DESCRIPTION: Bone Density Hip/Spine (STD) REASON FOR STUDY: 58-year-old post-menopausal female, screening for osteoporosis. Heel Molder/Model: HoloSiterra Horizon A (S/N [id number]) CLINICAL INFORMATION: Current height: 66 inches Maximum [...] by Qasim Collins M.D. AB: Report ID: [id number] Reading Location: [place] [address] REPORT ELECTRONICALLY SIGNED IN OTHER VENDOR SYSTEM Anupama Dietrich [facility] IM DXA PROCEDURES Joselyn l Result * ThinPrep Pap with HPV (02/02/2019 3:45 PM CDT) 02/02/2019 3:45 PM CDT 02/03/2019 11:35 AM CDT [facility] - 02/07/2019 11:19 AM CDT [facility] Department of Pathology [address] [place] [address] Final Report with Addendum Patient Name: SHEA JOYNER Address: [address] [place] [address] Gender: F : 1960 (Age: 58) Service: Laboratory Location: Lab Hospital #: [id number] Patient Type: CH Ref Lab Taken: 02/02/2019 Received: 02/03/2019 Accessioned:: 02/04/2019 Reported: 02/07/2019 Physician(s): Anupama Dietrich [facility] Diagnosis: Source of Specimen: SCREENING IMAGED [...] determined by the Surgical Pathology Department at [facility] as part of an ongoing quality checker program and in compliance with federally mandated [...] characteristics determined by the Surgical Pathology Department [facility]. It has not been cleared or approved by the U. S. Food and Drug Administration. Anupama Dietrich [facility] LAB CYTOLOGY ORDERABLES Final Result Performing Organization Address City/State/[facility] Co de Phone Number [address] [phone] from Last 3 Months or Most Recently Relevant to Health Maintenance Insurance MEDICARE COMMERCIAL GENERIC [place] [id number] MEDICARE COMMERCIAL [facility] [place] [id number] MEDICARE COMMERCIAL GENERIC AARP Care Teams Database Marketing Manager Relationship Specialty Start Date End Date Vinnie Denson MD [address] [facility] [address] [place] [address] PCP - General 02/20/20
== END 2024-12-14 15:04 | disposition home or self-care (01) ==
PROVIDERS: PCP Internal Medicine; Visit Provider Internal Medicine
DX: M16.12 Unilateral primary osteoarthritis, left hip (principal); M47.816 Spondylosis without myelopathy or radiculopathy, lumbar region
CPT/HCPCS: 72100; 73502

== ENCOUNTER 2025-03-28 13:30 | Outpatient (CLI) | payer MEDICARE, SELFPAY ==
--- NOTE | ~2025-03-28 | XR_ITS ---
EXAMINATION: XR shoulder RT min 2V, 03/28/2025 13:45 CDT HISTORY: M25.511 - Pain in right shoulder NON INJ COMPARISON: No comparisons available. Findings: No acute fracture or malalignment. No significant degenerative changes. Soft tissues unremarkable. Impression: No acute fracture or malalignment. Reviewed, dictated and finalized at location A. Impression: No acute fracture or malalignment.
--- OUTSIDE RECORDS SUMMARY | 2025-03-28 15:11 | XMS_ITS | Clinical Summary ---
Author Organization [facility] Address [address] [place] [id number] Care Team Providers Care Manager Heavy Equipment Name Role Phone Unavailable Primary Care Provider Unavailabl e Social History Tobacco Use Types Packs/Day Years Used Date Smoking Tobacco: Never Assessed Comments Unknown Sex and Gender Information Value Date Recorded Sex Assigned at Not on file Legal Sex Female 10:10 AM FURNACE TENDER Gender Identity Not on file Sexual Orientation Not on file Plan of Treatment Health Maintenance Due Date Last Done Comments Hepatitis C Virus (HCV) Screening 1960 TdaP Immunization 1960 Pap Smear 1980 Cervical Cancer Screening (CCS) 1989 HPV/Cotest 1989 Cologuard 2004 Colonoscopy 2004 Colorectal Cancer Screening 2004 Immunochemical Fecal Occult Blood 2004 Pneumococcal Immunization (50+ years) (2 of 2 - PCV) 04/04/2019 04/04/2018 SARS-COV-2 Immunization ( - 2023- season) 2024 06/20/2021, 10/26/2020, 09/14/2020 Influenza Immunization (#1) 03/13/202502/12, 04/04/2018, 03/22/2017, Additional history exists Respiratory Syncytial Virus (RSV) Immunization (Adult) (1 - 1-dose 75+ series) 2034 Pneumococcal Immunization Combined Discontinued 04/04/2018 Zoster Immunization Completed 05/16/2020, 0 Hepatitis B Immunization Aged Out No longer eligible based on patient's age to complete this topic Human Papillomavirus (HPV) Immunization Aged Out No longer eligible based on patient's age to complete this topic Meningococcal Immunization (ACWY) Aged Out No longer eligible based on patient's age to complete this topic Rotavirus Immunization Aged Out No lo nger eligible based on patient's age to complete this topic
--- OUTSIDE RECORDS SUMMARY | 2025-03-28 15:11 | XMS_ITS | Encounter Summary ---
Author Organization [facility] Address [address] [place] [address] Care Team Providers Care Information Technology Program Manager Name Role Phone Unavailable Primary Care Provider Unavailabl e Encounter Details Date Type Department Care Team (Late st Contact Info) Description 12/22/2024 Lab Requisition [facility] - DermPath Lab [address] [place] [phone] Savage Chen MD [address] [place] [address] Social History Tobacco Use Types [...] Priority Date/Time Associated Diagnosis Comments DERMATOPATHOLOGY Routine 12/21/2024 12:0 0 AM CDT documented in this encounter Results * DERMATOPATHOLOGY (12/21/2024 12:00 AM CDT) Case Report Dermatopathology Report Case: [id number] Authorizing Provider: Savage Chen MD Collected: 12/21/2024 12:00 AM Ordering Location: [facility] - Received: 12/22/2024 08:44 AM DermPath Lab Pathologist: Tiffany Jeffrey MD Specimen: Skin, right taoist 4:31 PM CDT DERMATOPATHOLOGY LABORATORY Final Diagnosis Specimen A. SKIN, right taoist: COMPOUND MELANOCYTIC NEVUS (D22.39) 4:31 PM CDT DERMATOPATHOLOGY LABORATORY at 1631 CDT Clinical History Irritated Nevus 4:31 PM CDT DERMATOPATHOLOGY LABORATORY Gross Description Specimen A: Received is one formalin filled container labeled with the patient's name and designated right taoist. The specimen consists of a shave biopsy measuring 9x4x2 mm. Jar 0. 4:31 PM CDT DERMATOPATHOLOGY LABORATORY Microscopic Description Specimen A. SKIN, right taoist: Sections show a compound proliferation of melanocytes, with nests arrayed along the epidermal-dermal junction. Melanocytes within the underlying dermis largely assume a spindled configuration, with surrounding fibrillar matrix.. 4:31 PM CDT DERMATOPATHOLOGY LABORATORY Disclaimer An external and internal positive and negative controls are appropriate for the histochemical, immunohistochemical and immunofluorescence stain(s) in this case (if any), except where stated explicitly. The performance characteristics of the stain(s) cited in this report were developed and its performance characteristic determined by the Dermatopathology Laboratory at [facility], directed by Dr. Shania Tsang. These tests need not be, and therefore are not, approved by the [place] Food and Drug Administration. The tests are used for clinical purposes. Billing Codes Specimen Charges Stain Charges 93735 1 5 4:31 PM CDT DERMATOPATHOLOGY LABORATORY Embedded Images 4:31 PM CDT DERMATOPATHOLOGY LABORATORY Pathology/Cytolog y TISSUE SPECIMEN FROM SKIN / Unknown 12/21/2024 12/22/2024 8:44 AM CDT Savage Chen MD LAB - PATHOLOGY/CYTOLOGY ORDERAB LES Final Result DERMATOPATHOLOGY LABORATORY [facility] - Department of Dermatology [address] [place] [address], [facility] [phone] documented in this encounter Visit Diagnoses Not on filedocumented in this encounter
--- OUTSIDE RECORDS SUMMARY | 2025-03-28 15:11 | XMS_ITS | Clinical Summary ---
Author Organization [facility] Address [address] [place] [address] Care Team Providers Care Clinical Biostatistics Director Name Role Phone Unavailable Primary Care Provider Unavailabl e Source Comments [facility],non-owned Affiliates and Associated Physician Practices is amultiple site organization consisting of ambulatory clinics and hospital sitesin [place], [place], [place] and [place]. This disclosure is being madepursuant to the Care Everywhere program and may not contain all information available regarding this patient. Last updated 18.[facility] [employer] Social History Tobacco Use Types Packs/Day Years [...] MAMMOGRAM 1960 MEDICARE AWV 12 MONTHS 1960 HIV SCREENING 1974 HEPATITIS C SCREENING 03/25/1977 DTAP/TDAP/TD VACCINES (1 - Tdap) 1978 PAP SMEAR 1980 PNEUMOCOCCAL VACCINE 50+ (1 of 1 - PCV) 2009 ZOSTER VACCINE (1 of 2) 2009 DEPRESSION SCREENING 07/13/2024 COVID-19 VACCINE (1 - 2023-2 5 season) 2025 INFLUENZA VACCINE (#1) 2025 Respiratory Syncytial Virus (RSV) Vaccine Pt: [...] age to complete this topic Insurance MEDICARE MEDICARE
--- OUTSIDE RECORDS SUMMARY | 2025-03-28 15:11 | XMS_ITS | Encounter Summary ---
Author Organization [facility] Address [address] [place], [place] [address] [address] Care Team Providers Care Dry Chain Puller Name Role Phone Unavailable Primary Care Provider Unavailabl e Encounter Details Date Type Department Care Team (Late st Contact Info) Description 05/01/2022 Lab Requisition [facility] DermPath Lab [address] [place] [phone] Savage Chen MD [address] [place] [address] Social History Tobacco Use Types [...] AM CDT) Case Report Dermatopathology Report Case: [id number] Authorizing Provider: Savage Chen MD Collected: 05/01/2022 12:00 AM Ordering Location: [facility] DermPath Lab Received: 05/01/2022 05:37 PM Pathologist: [...] specimen consists of a shave biopsy measuring 0h1w5wl. Jar 0. 12:50 PM CDT DERMATOPATHOLOGY LABORATORY [...] characteristic determined by the Dermatopathology Laboratory at [facility], directed by Dr. Shania Tsang. These tests need not be, and therefore are not, approved by the [place] Food and Drug Administration. The tests are used for clinical purposes. Billing Codes Specimen Charges Stain Charges 15349 1 12:50 PM CDT DERMATOPATHOLOGY LABORATORY Embedded Images 12:50 PM CDT DERMATOPATHOLOGY LABORATORY Pathology/Cytolog y TISSUE SPECIMEN FROM SKIN / Unknown 05/01/2022 05/01/2022 5:37 PM CDT Savage Chen MD LAB - PATHOLOGY/CYTOLOGY ORDERAB LES Final Result DERMATOPATHOLOGY LABORATORY [facility] - Department of Dermatology [address] [phone] documented in this encounter Visit Diagnoses Not on filedocumented in this encounter
--- OUTSIDE RECORDS SUMMARY | 2025-03-28 15:11 | XMS_ITS | Clinical Summary ---
Author Organization [facility] Address [address] [place] [address] Care Team Providers Care Undercollar Maker Name Role Phone Jasiel Eason DO Primary Care Provider [phone] Allergies No known active allergies Medications atorvastatin [...] on file Legal Sex Female 7:24 AM COMPLIANCE REVIEWER Gender Identity Not on file Sexual Orientation Not on file Obstetrics History Para Term AB IAB SAB Ectopic Multiple Livin g Live Births 0 0 Last Filed Vital Signs Vital Sign Reading Time Taken Comments Blood Pressure 136/78 07/14/2019 2:29 PM COMPLIANCE REVIEWER Pulse 79 07/14/2019 2:29 PM COMPLIANCE REVIEWER Temperature 36.6 C (97.9 F) 07/14/2019 2:29 PM COMPLIANCE REVIEWER Respiratory Rate - - Oxygen Saturation 96% 07/14/2019 2:29 PM COMPLIANCE REVIEWER Inhaled Oxygen Concentration - - Weight 88.5 [...] Well Visit 65+ 2024 02/02/2019 Influenza Vaccine (#1) 2025 8, 03/22/2017, 04/06/2016, Additional history exists Breast Cancer [...] age 39, based on guidelines of the [employer] (ACR Practice Parameter for the Performance of Screening and Diagnostic Mammography) and [employer]. For women [...] 2:56 PM CDT Patient Name: SHEA JOYNER Ordering Dr: Anupama Dietrich CNM D.O.B: 1960 Exam Date: 02/04/19 140 Age: 58 Sex: Female MR#: [id number] Loc: [facility]#: [id number] RADIOLOGY REPORT Order #[id number] Bone Density Bone Density Hip/Spine (STD) Signed EXAM DESCRIPTION: Bone Density Hip/Spine (STD) REASON FOR STUDY: 58-year-old post-menopausal female, screening for osteoporosis. Cardiology Clinical Nurse Specialist/Model: [employer] A (S/N [id number]) CLINICAL INFORMATION: Current height: 66 inches Maximum [...] by Qasim Collins M.D. AB: Report ID: [id number] Reading Location: [place] [address] REPORT ELECTRONICALLY SIGNED IN OTHER VENDOR SYSTEM Resulting Agency Comment O Procedure Note Qasim Collins MD - 02/04/2019 Patient Name: MILKASHEA KISER Dr: Anupama Dietrich CNM D.O.B: 1960 Exam Date: 02/04/19 1401 Age: 58 Sex: Female MR#: [id number] Loc: RADIOLOGY REPORT Order #[id number] Bone Density Bone Density Hip/Spine (STD) Signed EXAM DESCRIPTION: Bone Density Hip/Spine (STD) REASON FOR STUDY: 58-year-old post-menopausal female, screening for osteoporosis. Cardiology Clinical Nurse Specialist/Model: [employer] A (S/N [id number]) CLINICAL INFORMATION: Current height: 66 inches Maximum [...] by Qasim Collins M.D. AB: Report ID: [id number] Reading Location: [place] [address] REPORT ELECTRONICALLY SIGNED IN OTHER VENDOR SYSTEM Anupama Dietrich CNIvette IMG DXA PROCEDURES Joselyn l Result * ThinPrep Pap with HPV (02/02/2019 3:45 PM CDT) 02/02/2019 3:45 PM CDT 02/03/2019 11:35 AM CDT [facility] - 02/07/2019 11:19 AM CDT [facility] Department of Pathology [address] [place] [id number] Final Report with Addendum Patient Name: SHEA JOYNER Address: [address] [place] [address] Gender: F : 1960 (Age: 58) Service: Laboratory Location: Lab [facility] #: [id number] Patient Type: Ref Lab Taken: 02/02/2019 Received: 02/03/2019 Accessioned:: 02/04/2019 Reported: 02/07/2019 Physician(s): Anupama Dietrich [facility] Diagnosis: Source of Specimen: SCREENING IMAGED PAP [...] the Surgical Pathology Department at [facility] as part of an ongoing software quality analyst program and in compliance [...] characteristics determined by the Surgical Pathology Department [facility]. It has not been cleared or approved by the U. S. Food and Drug Administration. Anupama Karlo CN LAB CYTOLOGY ORDERABLES Final Result [facility] [place] [address], [facility] [phone] from Last 3 Months or Most Recently Relevant to Health Maintenance Insurance MEDICARE COMMERCIAL GENERIC MEDICARE MEDICARE COMMERCIAL GENERIC [facility] Care Teams Undercollar Maker Relationship Specialty Start Date End Date Jasiel Eason DO PCP - General Internal Medicine 03/21/25
--- OUTSIDE RECORDS SUMMARY | 2025-03-28 15:11 | XMS_ITS | Clinical Summary ---
Author Organization [facility] Address [facility] [place] [address] Care Team Providers Care Manager Sap Name Role Phone Jasiel Eason DO Primary Care Provider [phone] Medications atorvastatin (LIPITOR) 20 MG tablet Take 1 tablet (20 mg total) by mouth daily. Active lisinopril-hydr oCHLOROthiazide (ZESTORETIC) 10-12.5 MG tablet Take 1 tablet by mouth daily. Active meloxicam (MOBIC) 7.5 MG tablet Take 1 tablet (7.5 mg total) by mouth daily. Active triamcinolone (KENALOG) 0.1 % ointment APPLY THIN LAYER TOPICALLY TO THE AFFECTED AREA TWICE DAILY Active CONTRAVE 12 hr tablet Take 1 tablet by mouth daily. Active Active Problems Problem Noted Date Diagnosed Date Varicose veins of bilateral lower extremities wi th pain 12/07/2024 Age-related nuclear cataract of both eyes 2021 Menopausal symptom 10/31/2013 Overview (12/07/2024): Menopausal or female climacteric states;Recorded Elsewhere: No Location: [facility] Source: EHR Chronic: N Practice ID: [id number] Billable Time: 01:00:00 PM Breast lump 01/14/2011 Overview (12/07/2024): Lump or mass in breast;Practice ID: [id number] Cyst of ovary 01/14/2011 Overview (12/07/2024): OVARIAN CYST;Practice ID: 0001 Female genital symptoms 01/03/2011 Overview (12/07/2024): Unspecified symptom associated with female genital organs;Practice ID: 0001 Immunizations Immunization Administration Dates Next Due Arexvy Respiratory Syncytial Virus (RSV, adjuvanted) 0.5 mL, PF 04/24/2024 Fluzone High Dose (IIV, triv alent, 0.5mL) 04/24/2024 Influenza (Generic) 03/13/2021, 7,04/06/2016,2014,04/04/2014,05/16/2013,07/19/2012 Influenza Adult (Generic) 05/25/2023,09/2021,03/12/2020,2017 PFIZER COVID-19 (ORIGINAL FORMULATION, PURPLE CAP) mRNA, LNP-S, PF, 30 MCG/0.3 ML DOSE 10/26/2020 Pneumococcal (Pneumovax 23) 04/04/2018 Shingrix 05/16/2020,03/12/2020 Social History Tobacco Use Types Packs/Day Years Used Date Smoking Tobacco: Never Assessed Comments Unknown Sex and Gender Information Value Date Recorded Sex Assigned at Not on file Legal Sex Female 7:18 PM CDT Gender Identity Not on file Sexual Orientation Not on file Last Filed Vital Signs Vital Sign Reading Time Taken Comments Blood Pressure 150/90 12/07/2024 3:31 PM CDT Pulse 68 12/07/2024 3:31 PM CDT Temperature - - Respiratory Rate - - Oxygen Saturation - - Inhaled Oxygen Concentration - - Weight 101.6 kg (224 lb) 12/07/2024 3:31 PM CDT Height 167.6 cm (5' 6) 12/07/2024 3:31 PM CDT Body Mass Index 36.15 12/07/2024 3:31 PM CDT Plan of Treatment Health Maintenance Due Date Last Done Comments Colorectal Cancer Screening Colonoscopy (10 Years) 1960 Hepatitis C 1977 DTaP, Tdap and Td Vaccines (1 - Tdap) 1978 Pneumococcal Vaccine: 50+ Years (2 of 2 - PCV) 04/04/2019 04/04/2018 Dexa Scan (General) 2024 02/04/2019, 9 COVID-19 Vaccine ( season) 2025 05/29/2024, 05/25/2023, 04/14/2022, Additional history exists Mammogram Screening 04/07/2026 04/07/2024, 01/21/2023, 06/11/2021, Additional history exists Zoster Vaccines Completed 05/16/2020, 03/12/2020 RSV Immunization or 60+ Years Completed 04/24/2024 Meningococcal B Vaccine Aged Out No l onger eligible based on patient's age to complete this topic Meningococcal Vaccine Aged Out No kristie sharon eligible based on patient's age to complete this topic RSV Immunizations Under 20 Months Aged Out No longer eligible based on patient's age to complete this topic Insurance MEDICARE Care Teams Manager Sap Relationship Specialty Start Date End Date Jasiel Eason DO [address] [address] PCP - General INTERNAL MEDICINE 12/07/24
== END 2025-03-28 13:31 | disposition home or self-care (01) ==
PROVIDERS: PCP Nurse Practitioner; Visit Provider Nurse Practitioner
DX: M25.511 Pain in right shoulder (principal)
CPT/HCPCS: 73030

== ENCOUNTER 2025-05-24 00:30 | Day surgery (SDC) | payer MEDICARE, SELFPAY ==
[2025-05-15 08:43] VITALS: BMI 34.8
[2025-05-24 07:16] VITALS: BP 130/67; PULSE 66; RESP 18; TEMP 36.3; O2SAT 99
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
[2025-05-24] MEDS: LACTATED RINGERS 1,000 ML 150 ML IV CONT (07:27)
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
--- NOTE | 2025-05-24 08:54 | S_PTH ---
PATIENT: Lacey Joyner LOC: [facility]#:[id number] AGE/SX: 65/F ROOM: RE05/24/[address]: Tao Rosales MD : 1960 BED: DIS: 05/24/2025 SPEC #: [id number] RECD: 05/24/25 11:01 STATUS: VLAD REQ #: [id number] DEIDRA: 05/24/25 08:[address]: Tao Rosales DEPT: [facility] Surgical RECD BY: Dannielle Latham ENTERED: 05/24/25 11:01 SP TYPE: Surgical OTHR DR: Alison Cade, KB Tissues: A - Colon Polypectomy B - Colon Polypectomy Procedures: Hematoxylin and Eosin Stain Gross and Microscopic Level 4
[2025-05-24 08:57] VITALS: BP 136/71; PULSE 66; RESP 19; O2SAT 98
[2025-05-24 09:07] VITALS: BP 115/67; PULSE 67; RESP 26; O2SAT 98
[2025-05-24 09:17] VITALS: BP 137/69; PULSE 65; RESP 19; O2SAT 100
== END 2025-05-24 09:40 | disposition home or self-care (01) ==
PROVIDERS: PCP Nurse Practitioner; Referring Provider Nurse Practitioner; Visit Provider Internal Medicine Gastroenterology
PROC: 0DJD8ZZ Inspection of Lower Intestinal Tract, Via Natural or Artificial Opening Endoscopic (ICD-10-PCS; CPT 45378; principal; 2025-05-24 08:30)
DX: Z12.11 Encounter for screening for malignant neoplasm of colon (principal); R19.5 Other fecal abnormalities; D12.5 Benign neoplasm of sigmoid colon; D12.8 Benign neoplasm of rectum; K57.30 Diverticulosis of large intestine without perforation or abscess without bleeding; Z87.891 Personal history of nicotine dependence; E66.9 Obesity, unspecified; Z68.35 Body mass index [BMI] 35.0-35.9, adult
CPT/HCPCS: 45385; 88305; J1596; J2003; J2704; J7120